=== PATIENT | female | born 1950 | race Caucasian/White ===

== ENCOUNTER 2019-01-24 02:14 | Inpatient (IN) | payer MEDICARE ==
[~2019-01-24] VITALS: Ht 167.6 cm; Wt 65.9 kg
[2019-01-24] MEDS ORDERED: ONDANSETRON 4 MG INJ IV STA ×2 (02:18→03:59)
[2019-01-24] MEDS ORDERED: morphine 4 MG/ML VIAL IV STA (02:18)
[2019-01-24 02:28] VITALS: Ht 167.6 cm; Wt 65.9 kg
--- NOTE | 2019-01-24 03:35 | ERD ---
ER Documentation Chief Complaint Chief Complaint MARTIN from [facility],back pain r/t post-op sx,[place] at 0100 HPI This is a 68-year-old female brought in from the elbow of her back pain. Patient states that she feels body aches everywhere, she had spinal surgery, for ankylosing spondylosis. She states that she did not feel that the facility was addressing her pain. She denies fever, denies chest pain. ROS All systems reviewed and are negative except as per history of present illness. Medications Home Meds Reported Medications Ibuprofen* (Advil*) 200 Mg Capsule, 200 MG PO Q6H PRN for PAIN, CAP 01/24/19 Allergies Allergies: Coded Allergies: No Known Allergy (Unverified , 01/24/19) PMhx/Soc History of Surgery: Yes (BREAST REDUCTION,BACK SURGERY ) Hx Alcohol Use: No Hx Substance Use: No Hx Tobacco Use: Yes Smoking Status: Current some day smoker Physical Exam Vitals Vital Signs Date Temp Pulse Resp B/P (MAP) Pulse Ox O2 O2 Flow FiO2 Time Delivery Rate 01/24/19 90 16 117/88 92 Nasal 3.0 04:12 (98) Cannula 01/24/19 98.3 86 18 157/106 99 02:28 (123) Physical Exam Const: Patient tearful, cooperative Head: Atraumatic Eyes: Normal Conjunctiva ENT: Normal External Ears, Nose and Mouth. Neck: Full range of motion. No meningismus. Resp: Clear to auscultation bilaterally Cardio: Regular rate and rhythm, no murmurs Abd: Soft, non tender, non distended. Normal bowel sounds Skin: No petechiae or rashes Back: There is diffuse lower back tenderness, there is no step-off. Ext: No cyanosis, or edema Neur: Awake and alert Psych: Normal Mood and Affect Result Diagram: 01/24/19 0244 01/24/19 0244 Results 24 hrs Laboratory Tests Test 01/24/19 02:43 01/24/19 02:44 Prothrombin Time 11.6 Sec Prothrombin Time Ratio 0.9 INR International Normalized Ratio 0.84 White Blood Count 3.3 10^3/ul Red Blood Count 4.27 10^6/ul Hemoglobin 11.7 g/dl Hematocrit 36.8 % Mean Corpuscular Volume 86.2 fl Mean Corpuscular Hemoglobin 27.4 pg Mean Corpuscular Hemoglobin Concent 31.8 g/dl Red Cell Distribution Width 15.7 % Platelet Count 261 10^3/UL Mean Platelet Volume 9.5 fl Immature Granulocytes % 0.300 % Neutrophils % 34.0 % Lymphocytes % 50.0 % Monocytes % 11.7 % Eosinophils % 2.8 % Basophils % 1.2 % Nucleated Red Blood Cells % 0.0 /100WBC Immature Granulocytes # 0.010 10^3/ul Neutrophils # 1.1 10^3/ul Lymphocytes # 1.6 10^3/ul Monocytes # 0.4 10^3/ul Eosinophils # 0.1 10^3/ul Basophils # 0.0 10^3/ul Nucleated Red Blood Cells # 0.0 10^3/ul Sodium Level 142 mmol/L Potassium Level 4.2 mmol/L Chloride Level 108 mmol/L Carbon Dioxide Level 27 mmol/L Anion Gap 7 Blood Urea Nitrogen 17 mg/dl Creatinine 0.82 mg/dl Est Glomerular Filtrat Rate mL/min > 60 mL/min Glucose Level 92 mg/dl Calcium Level 10.0 mg/dl Total Bilirubin 0.2 mg/dl Direct Bilirubin 0.00 mg/dl Indirect Bilirubin 0.2 mg/dl Aspartate Amino Transf (AST/SGOT) 42 IU/L Alanine Aminotransferase (ALT/SGPT) 70 IU/L Alkaline Phosphatase 142 IU/L Troponin I < 0.012 ng/ml Total Protein 7.1 g/dl Albumin 3.8 g/dl Globulin 3.30 g/dl Albumin/Globulin Ratio 1.15 Current Medications Medications Dose Sig/Maikol Start Time Status Last (Trade) Ordered Route PRN Stop Time Admin Dose Reason Admin Morphine 4 mg ONCE STAT 01/24/19 DC 01/24/19 Sulfate IV 02:18 02:47 (morphine) 01/24/19 02:20 Ondansetron 4 mg ONCE STAT 01/24/19 DC 01/24/19 HCl (Zofran IV 02:18 02:47 Inj) 01/24/19 02:20 Ondansetron 4 mg ONCE STAT 01/24/19 DC 01/24/19 HCl (Zofran IV 03:59 04:04 Inj) 01/24/19 04:00 Ketamine 20 mg ONCE STAT 01/24/19 DC 01/24/19 HCl IV 03:59 04:05 (Ketamine 01/24/19 04:00 HCl) Lorazepam 0.5 mg ONCE ONCE 01/24/19 DC 01/24/19 (Ativan) IV 05:00 04:35 01/24/19 05:01 Procedures/MDM 60-year-old female presents for acute on chronic back pain. I reviewed the patient's outside records. Per her last hospitalization, she was discharged from [facility] on January 15, she has documented history of prior alcoholism and substance abuse, during her hospitalization she had an MRI which showed postop changes at L4/L5 with hardware intact, given her pain, a CT of the lumbar spine was ordered. EKG: Rate/Rhythm: Normal Sinus Rhythm QRS, ST, T-waves: No changes consistent w/ acute ischemia Impression: No evidence of ischemia or arrhythmia 5:44 AM: Accepting Care Team: Current data and ongoing care discussed. Primary: Aj Consulting: None Outstanding Data: none Departure Diagnosis: Primary Impression: Back pain Back pain location: low back pain Chronicity: unspecified Back pain laterality: unspecified Sciatica presence: unspecified whether sciatica present Qualified Codes: M54.5 - Low back pain Condition: RACHEAL Cespedes MD Jan 24, 2019 03:35
[2019-01-24] MEDS ORDERED: KETAMINE HCL (50 MG/ML) 1ml syringe IV STA (03:59)
[2019-01-24] MEDS ORDERED: IBUP200C11 PO (04:23)
[2019-01-24] MEDS ORDERED: LORAZEPAM 2 MG INJ IV ONE (05:00)
[2019-01-24] MEDS ORDERED: ACETAMINOPHEN 325 MG TAB PO PRN ×2 (06:00)
[2019-01-24] MEDS ORDERED: ONDANSETRON 4 MG INJ IV PRN ×2 (06:00)
[2019-01-24] MEDS ORDERED: BISACODYL (EC) 5 MG TAB PO PRN (06:00)
[2019-01-24] MEDS: HYDROCODONE/APAP (5/325) TAB PO SCH ×4 (06:26→23:00)
[2019-01-24] MEDS: HYDROmorphONE 0.5 MG/0.5 ML SYG IV PRN ×4 (07:49→21:31)
[2019-01-24 08:16] VITALS: BP 132/71; PULSE 72; RESP 17
[2019-01-24] MEDS: ENOXAPARIN 40 MG/0.4 ML SYG SC SCH (09:08)
--- NOTE | 2019-01-24 11:22 | HP ---
Date/Time of Note Date/Time of Note DATE: 01/24/19 TIME: 11:22 Assessment/Plan VTE Prophylaxis Pharmacological prophylaxis: LMWH Lines/Catheters IV Catheter Type (from Nrs): Saline Lock Urinary Cath still in place: No Assessment/Plan Hospital Course 68-year-old female with a past medical history of chronic back pain who had a l umbar spine surgery in September 2018 and was getting rehabilitation [facility] a local [facility] facility who was brought into the emergency room because of uncontrolled pain, will be admitted to inpatient setting for further treatment and evaluation. 1. Low back pain in a patient with recent surgery to the lumbar spine. Lumbar spine CT showing postsurgical changes L4-5 with grade 2 anterolisthesis, severe disc space narrowing, endplate erosive changes, and probable fragmented disc spacer device. Obtain imaging studies from the recent hospitalization. If unable to obtain records from other hospital, would do MRI of the lumbar spine with and without contrast. The patient has no evidence of any neurovascular compromise. Continue pain control. PT evaluation. 2. Anxiety disorder. The patient will be maintained on PRN anxiolytics. Psychiatric evaluation will be obtained. 3. Suspect opioid dependency. Will judiciously use opioids. Will obtain pain management consult if needed. 4. Incomplete database. Will obtain medical records from her recent hospitalization at [facility] and [facility]. Plan: The patient will be admitted to inpatient medical surgical floor. The pat ient will be started on a regular diet. The patient will be started on DVT prophylaxis. The patient will remain a full code. Activities will be with assist. The rest of the patient's management will be based on the clinical course and the results of diagnostic studies. Based on the patient's clinical presentation, she most probably requires at least 2 midnights stay for further management and evaluation of her clinical presentation. The patient was seen in collaboration with Dr. Garces. Result Diagram: 01/24/19 0244 01/24/19 0244 Results 24hrs Laboratory Tests Test 01/24/19 02:43 01/24/19 02:44 Prothrombin Time 11.6 L Prothrombin Time Ratio 0.9 INR International Normalized Ratio 0.84 White Blood Count 3.3 L Red Blood Count 4.27 Hemoglobin 11.7 L Hematocrit 36.8 L Mean Corpuscular Volume 86.2 Mean Corpuscular Hemoglobin 27.4 L Mean Corpuscular Hemoglobin Concent 31.8 L Red Cell Distribution Width 15.7 H Platelet Count 261 Mean Platelet Volume 9.5 Immature Granulocytes % 0.300 Neutrophils % 34.0 L Lymphocytes % 50.0 Monocytes % 11.7 H Eosinophils % 2.8 Basophils % 1.2 Nucleated Red Blood Cells % 0.0 Immature Granulocytes # 0.010 Neutrophils # 1.1 L Lymphocytes # 1.6 Monocytes # 0.4 Eosinophils # 0.1 Basophils # 0.0 Nucleated Red Blood Cells # 0.0 Sodium Level 142 Potassium Level 4.2 Chloride Level 108 Carbon Dioxide Level 27 Anion Gap 7 Blood Urea Nitrogen 17 Creatinine 0.82 Est Glomerular Filtrat Rate mL/min > 60 Glucose Level 92 Calcium Level 10.0 Total Bilirubin 0.2 Direct Bilirubin 0.00 Indirect Bilirubin 0.2 Aspartate Amino Transf (AST/SGOT) 42 Alanine Aminotransferase (ALT/SGPT) 70 H Alkaline Phosphatase 142 H Troponin I < 0.012 Total Protein 7.1 Albumin 3.8 Globulin 3.30 H Albumin/Globulin Ratio 1.15 HPI/ROS Admit Date/Time Admit Date/Time Jan 24, 2019 at 05:59 Hx of Present Illness This is a 68-year-old female who was brought in from [facility] because of lower back pain. The patient verbalized that she was transferred to [facility] after her hospitalization at [facility] on January 15, 2019. She has been unhappy with the care at the facility and therefore, she called the paramedics. The patient verbalized that she had a surgery for ankylosing spondylitis at [facility] in September [address] David Francisco and she was discharged home 3 days after the surgery. Afterwards she was taken to [facility] from her home for reasons that she could not explain. The patient emphasized that she has no problems with drug abuse or alcoholism. The patient denied any psychiatric problems. Before the lumbar spine surgery, the patient was being followed by at [facility] for her chronic pain. The patient was unable to explain the reason for her recent hospitalization at [facility]. The patient verbalized that she has been transferred to [facility] without her knowledge. According tot the patient's RN who had a chance to talk to the patient's daughter (Marianna Abernathy), the patient is dependent on opioids and she had refused home PT after the surgery. As per the patient's daughter the patient becomes agitated when not given enough opioids. During the initial evaluation the patient was complaining of back pain with radiation to bilateral upper extremities and radiation to the chest. The patient also verbalized difficulty in ambulation. She denied any urinary or fecal incontinence. She denied any saddle anesthesia. She denied any fevers or chills. Denied any dyspnea. Denied any nausea, vomiting, abdominal pain, or diarrhea. In the emergency room, the patient underwent a chest x-ray that was showing mild bibasilar subsegmental atelectasis. The patient underwent a lumbar spine CT that was showing postsurgical changes L4-L5 with grade 2 anterolisthesis, severe disc space narrowing, endplate erosive changes, and a probable fragmented disc spacer device. The patient was treated with IV morphine, IV ketamine, anxiolytics, and antiemetics in the emergency room. ROS Constitutional: no complaints Eyes: no complaints ENT: no complaints Respiratory: no complaints Cardiovascular: no complaints Gastrointestinal: no complaints Genitourinary: no complaints Musculoskeletal: back pain Skin: no complaints Neurologic: no complaints Endocrine: no complaints Lymphatic: no complaints Psychological: anxiety Immunologic: no complaints PMH/Family/Social Past Medical History 1. Chronic back pain. Medications Current Medications Ondansetron HCl (Zofran Inj) 4 mg BRIDGE ORDER PRN IV NAUSEA/VOMITING; Start 01/24/19 at 06:00; Stop 01/25/19 at 05:59 Acetaminophen (Tylenol Tab) 650 mg ER BRIDGE PRN PO .MILD PAIN 1-3 OR TEMP; Start 01/24/19 at 06:00; Stop 01/25/19 at 05:59 IV Flush (NS 3 ml) 3 ml PER PROTOCOL IV ; Start 01/24/19 at 06:00 Ondansetron HCl (Zofran Inj) 4 mg Q6H PRN IV NAUSEA/VOMITING; Start 01/24/19 at 06:00 Acetaminophen (Tylenol Tab) 650 mg Q6H PRN PO .PAIN 1-3 OR TEMP; Start 01/24/19 at 06:00 Acetaminophen/ Hydrocodone Bitart ([place] (5/325)) 1 tab Q6H PO Last administered on 01/24/19at 06:26; Admin Dose 1 TAB; Start 01/24/19 at 06:00 Hydromorphone HCl (Dilaudid) 0.5 mg Q4H PRN IV .SEVERE PAIN 7-10 Last administered on 01/24/19at 07:49; Admin Dose 0.5 MG; Start 01/24/19 at 06:00 Docusate Sodium (Colace) 100 mg Q12H PRN PO .CONSTIPATION; Start 01/24/19 at 06:00 Bisacodyl (Dulcolax) 5 mg DAILY PRN PO .CONSTIPATION; Start 01/24/19 at 06:00 Enoxaparin Sodium (Lovenox) 40 mg DAILY SC Last administered on 01/24/19at 09:08; Admin Dose 40 MG; Start 01/24/19 at 09:00 Coded Allergies: No Known Allergy (Unverified , 01/24/19) Past Surgical History 1. B/L breast reduction surgery. 2. Recent lumbar spine surgery in September, w/ Dr. David Francisco At [facility]. Social History Patient verbalized that she used to be was a [employer] for 25 years and is currently . Prior to the patient's recent surgery, she was living in her home by herself close to her daughter's house. The patient verbalized that she has good financial reserves. Alcohol Use: other (Prior alcohol abuse disorder.) Smoking Status: Former smoker Drug Use: other (Remote history of drug use) Exam/Review of Systems Vital Signs Vitals Vital Signs Date Temp Pulse Resp B/P (MAP) Pulse Ox O2 O2 Flow FiO2 Time Delivery Rate 01/24/19 98.7 72 17 132/71 100 Room Air 08:16 (91) 01/24/19 3.0 06:30 Exam Exam General: Adequately build 68 year-old female lying in bed in no apparent distress. HEENT: Normocephalic, atraumatic. Eyes: Anicteric sclerae, conjunctivae clear. ENT: Nasal septum midline, oral mucosa moist. Neck supple, no JVD noticed. Respiratory: Bilaterally clear breath sounds. No use of accessory muscles of respiration. No adventitious breath sounds. Cardiovascular: S1, S2 heard. No murmurs or gallops. Abdomen: Soft, nontender, and nondistended. Bowel sounds positive in all 4 quadrants. Back: Healed surgical scar (midline) over the lumbar spine. Genitourinary: Deferred. Extremities: No cyanosis, no clubbing, no edema. Peripheral pulses palpable. Neurologic: Cranial nerves II through XII grossly intact. The patient is awake, alert, and oriented. Skin: Normal skin turgor. No skin rashes. Psychologic: Anxious. Tearful at times. Additional Comments CT Lumbar Spine IMPRESSION: No definite acute fracture. Postsurgical changes L4-5 with grade 2 anterolisthesis, severe disc space narrowing, endplate erosive changes, and a probable fragmented disc spacer device. Diskitis cannot be excluded with this appearance. Significant disc space narrowing is seen at this level with some probable posterior bony fusion material also seen. Edema and stranding of the subcutaneous soft tissues posteriorly. BRITTANY ALVAREZ NP Jan 24, 2019 11:22
[2019-01-24 13:00] VITALS: BP 181/71; PULSE 100; RESP 17
[2019-01-24 14:00] VITALS: BP 186/81; PULSE 100; RESP 17
[2019-01-24 14:28] VITALS: BP 131/75; PULSE 74; RESP 17
[2019-01-24] MEDS: LORAZEPAM 2 MG INJ IV PRN ×2 (15:19→23:52)
[2019-01-24] MEDS ORDERED: SOD CHLORIDE 0.9% 1,000 ML IV SCH (15:30)
[2019-01-24 20:00] VITALS: BP 101/62; PULSE 88; RESP 18
[2019-01-24 23:50] VITALS: BP 127/71; PULSE 84
[2019-01-25 01:00] VITALS: BP 115/74; PULSE 84; RESP 18
[2019-01-25] MEDS: HYDROmorphONE 0.5 MG/0.5 ML SYG IV PRN ×4 (04:30→19:57)
[2019-01-25] MEDS: HYDROCODONE/APAP (5/325) TAB PO SCH ×3 (06:40→18:08)
[2019-01-25 07:32] VITALS: BP 132/82; PULSE 83; RESP 17
[2019-01-25] MEDS: ENOXAPARIN 40 MG/0.4 ML SYG SC SCH (08:37)
[2019-01-25] MEDS: LORAZEPAM 2 MG INJ IV PRN (11:12)
--- NOTE | 2019-01-25 13:36 | PN ---
Date/Time of Note Date/Time of Note DATE: 01/25/19 TIME: 13:31 Assessment/Plan VTE Prophylaxis Risk score (from Nsg)>0 risk: 2 SCD applied (from Nsg): Yes Pharmacological prophylaxis: LMWH Lines/Catheters IV Catheter Type (from Nrsg): Peripheral IV Urinary Cath still in place: No Assessment/Plan Assessment/Plan 68-year-old woman with a past medical history of chronic back pain who had a lumbar spine surgery in September 2018 and was getting rehabilitation at a local [facility] facility who was brought into the emergency room because of uncontrolled pain. # Low back pain in a patient with recent surgery to the lumbar spine. - lumbar spine surgery by Dr. Loyola 10/23/2018 - Lumbar spine CT showing postsurgical changes L4-5 with grade 2 anterolisthesis, severe disc space narrowing, endplate erosive changes, and probable fragmented disc spacer device. - Patient has no symptoms concerning for cauda equina or other spinal compression. Will hold off on MRI. - Continue opioid analgesics and muscle relaxants. Wean off IV opioids onto oral. - PT # Anxiety disorder. - The patient will be maintained on PRN anxiolytics. - Psychiatric evaluation will be obtained. # Suspect opioid dependency. - Will judiciously use opioids. - Will obtain pain management consult if needed. # Incomplete database. Will obtain medical records from her recent hospitalization at [facility] and [facility], if patient consents. This may not be entirely necessary to treat her chronic lower back pain. Plan: Pain control, wean off IV analgesics, physical therapy, discharge with home health PT. Result Diagram: 01/25/19 0425 01/25/19 0425 Subjective 24 Hr Interval Summary Free Text/Dictation No acute overnight events. Mood and affect appropriate on my exam. Pain adequately controlled. She does keep asking if she can go home to water her plants and tidy up and return to the hospital. I said no. Exam/Review of Systems Exam Vitals Vital Signs Date Temp Pulse Resp B/P (MAP) Pulse Ox O2 O2 Flow FiO2 Time Delivery Rate 01/25/19 83 17 132/82 94 07:32 (99) 01/25/19 98.6 01:00 01/24/19 Room Air 20:00 01/24/19 3.0 06:30 Intake and Output 01/24/19 01/24/19 01/25/19 1515:00 23:00 07:00 IntakeIntake Total 600 ml 600 ml 800 ml BalanceBalance 600 ml 600 ml 800 ml Exam General: Adequately built woman lying in bed in no apparent distress. HEENT: Normocephalic, atraumatic. Eyes: Anicteric sclerae, conjunctivae clear. ENT: Nasal septum midline, oral mucosa moist. Neck supple, no JVD noticed. Respiratory: Bilaterally clear breath sounds. No use of accessory muscles of respiration. No adventitious breath sounds. Cardiovascular: S1, S2 heard. No murmurs or gallops. Abdomen: Soft, nontender, and nondistended. Bowel sounds positive in all 4 quadrants. Back: Healed surgical scar (midline) over the lumbar spine. No midline or paraspinal tenderness. Extremities: No cyanosis, no clubbing, no edema. Peripheral pulses palpable. Skin: Normal skin turgor. No skin rashes. Results Results 24hrs Laboratory Tests Test 01/25/19 02:45 01/25/19 04:25 Urine Opiates Screen Positive Urine Barbiturates Negative Urine Amphetamines Screen Negative Urine Benzodiazepines Screen Positive Urine Cocaine Screen Negative Urine Cannabinoids Negative White Blood Count 3.3 L Red Blood Count 3.65 L Hemoglobin 10.2 L Hematocrit 31.7 L Mean Corpuscular Volume 86.8 Mean Corpuscular Hemoglobin 27.9 L Mean Corpuscular Hemoglobin Concent 32.2 Red Cell Distribution Width 15.7 H Platelet Count 244 Mean Platelet Volume 9.8 Immature Granulocytes % 0.000 L Neutrophils % 40.2 Lymphocytes % 44.6 Monocytes % 11.9 H Eosinophils % 2.1 Basophils % 1.2 Nucleated Red Blood Cells % 0.0 Immature Granulocytes # 0.000 Neutrophils # 1.3 L Lymphocytes # 1.5 Monocytes # 0.4 Eosinophils # 0.1 Basophils # 0.0 Nucleated Red Blood Cells # 0.0 Sodium Level 142 Potassium Level 4.2 Chloride Level 107 Carbon Dioxide Level 28 Anion Gap 7 Blood Urea Nitrogen 15 Creatinine 0.82 Est Glomerular Filtrat Rate mL/min > 60 Glucose Level 92 Hemoglobin A1c 5.2 Calcium Level 9.7 Magnesium Level 1.8 Total Bilirubin 0.2 Direct Bilirubin 0.00 Indirect Bilirubin 0.2 Aspartate Amino Transf (AST/SGOT) 37 Alanine Aminotransferase (ALT/SGPT) 61 Alkaline Phosphatase 116 Total Protein 5.6 #L Albumin 3.1 L Globulin 2.50 Albumin/Globulin Ratio 1.24 Triglycerides Level 159 H Cholesterol Level 202 H LDL Cholesterol, Calculated 128 HDL Cholesterol 42 Cholesterol/HDL Ratio 4.8 Thyroid Stimulating Hormone (TSH) 3.660 Medications Medication Current Medications IV Flush (NS 3 ml) 3 ml PER PROTOCOL IV ; Start 01/24/19 at 06:00 Ondansetron HCl (Zofran Inj) 4 mg Q6H PRN IV NAUSEA/VOMITING; Start 01/24/19 at 06:00 Acetaminophen (Tylenol Tab) 650 mg Q6H PRN PO .PAIN 1-3 OR TEMP; Start 01/24/19 at 06:00 Acetaminophen/ Hydrocodone Bitart ([place] (5/325)) 1 tab Q6H PO Last administered on 01/25/19 11:12; Admin Dose 1 TAB; Start 01/24/19 at 06:00 Hydromorphone HCl (Dilaudid) 0.5 mg Q4H PRN IV .SEVERE PAIN 7-10 Last administered on 01/25/19 08:36; Admin Dose 0.5 MG; Start 01/24/19 at 06:00 Docusate Sodium (Colace) 100 mg Q12H PRN PO .CONSTIPATION; Start 01/24/19 at 06:00 Bisacodyl (Dulcolax) 5 mg DAILY PRN PO .CONSTIPATION; Start 01/24/19 at 06:00 Enoxaparin Sodium (Lovenox) 40 mg DAILY SC Last administered on 01/25/19 08:37; Admin Dose 40 MG; Start 01/24/19 at 09:00 Lorazepam (Ativan) 1 mg Q8H PRN IV Anxiety Last administered on 01/25/19 11:12; Admin Dose 1 MG; Start 01/24/19 at 12:00 BRIDGET COONEY MD Jan 25, 2019 13:36
[2019-01-25 14:00] VITALS: BP 113/80; PULSE 91; RESP 18
[2019-01-25 16:28] VITALS: BP 113/80; PULSE 91; RESP 18
[2019-01-25] MEDS ORDERED: BACLOFEN 10 MG TAB ONE (19:51)
[2019-01-25 20:00] VITALS: BP 101/63; PULSE 86; RESP 19
[2019-01-25] MEDS: BACLOFEN 10 MG TAB PO SCH (20:00)
[2019-01-26] MEDS: HYDROCODONE/APAP (5/325) TAB PO SCH ×3 (00:09→11:19)
[2019-01-26 02:02] VITALS: BP 111/66; PULSE 82; RESP 18
[2019-01-26 07:28] VITALS: BP 133/79; PULSE 80; RESP 17
[2019-01-26] MEDS: HYDROmorphONE 0.5 MG/0.5 ML SYG IV PRN ×4 (08:10→20:54)
[2019-01-26] MEDS: BACLOFEN 10 MG TAB PO SCH ×3 (08:10→20:53)
[2019-01-26] MEDS: ENOXAPARIN 40 MG/0.4 ML SYG SC SCH (08:11)
[2019-01-26 14:00] VITALS: BP 118/82; PULSE 94; RESP 17
--- NOTE | 2019-01-26 16:02 | PN ---
Date/Time of Note Date/Time of Note DATE: 01/26/19 TIME: 15:57 Assessment/Plan VTE Prophylaxis Risk score (from Nsg)>0 risk: 4 SCD applied (from Ns): No SCD contraindicated: other Pharmacological prophylaxis: LMWH Lines/Catheters IV Catheter Type (from Nrsg): Saline Lock Urinary Cath still in place: No Assessment/Plan Hospital Course S: Patient still having some back pain symptoms earlier today, relieved with pain medications. Was able to work in physical therapy after that, including ambulating in the hallway with their assistance. MRI L-spine performed as well results reviewed. O: VS - see below PE: General: Adequately built woman lying in bed, occasionally emotionally labile at times HEENT: Normocephalic, atraumatic. Eyes: Anicteric sclerae, conjunctivae clear. ENT: Nasal septum midline, oral mucosa moist. Neck supple, no JVD noticed. Respiratory: Bilaterally clear breath sounds. No use of accessory muscles of respiration. No adventitious breath sounds. Cardiovascular: S1, S2 heard. No murmurs or gallops. Abdomen: Soft, nontender, and nondistended. Bowel sounds positive in all 4 quadrants. Back: Healed surgical scar (midline) over the lumbar spine. No midline or paraspinal tenderness. Extremities: No cyanosis, no clubbing, no edema. Peripheral pulses palpable. MRI L-spine January 26, 2019: IMPRESSION: No evidence for epidural abscess. Again seen is significant grade 2 anterolisthesis of L4-5 with uncovering of the intervertebral disc and erosive endplate changes with some endplate enhancement. Diskitis cannot be excluded with this MRI appearance and comparison with previous studies would likely be most helpful. Postsurgical changes from prior L4-5 fusion are again seen. Disc spacer device is not well seen and if 1 was present, it is likely predominately resorbed. Other mild degenerative changes as above. Assessment/Plan: 68-year-old woman with a past medical history of chronic back pain who had a lumbar spine surgery in September 2018 and was getting rehabilitation at a local retirement facility who was brought into the emergency room because of uncontrolled pain. # Low back pain in a patient with recent surgery to the lumbar spine- lumbar spine surgery by Dr. Loyola 10/23/2018- Lumbar spine CT showing postsurgical changes L4-5 with grade 2 anterolisthesis, severe disc space narrowing, endplate erosive changes, and probable fragmented disc spacer device. MRI L-spine results reviewed as well. - Continue opioid analgesics and muscle relaxants. Wean off IV opioids onto oral. -Continue PT and will try to obtain medical records from [facility] where the patient was recently treated including the surgery she had performed a few months ago there, to review the records # Anxiety disorder.- The patient will be maintained on PRN anxiolytics. - Psychiatric evaluation will be obtained. # Suspect opioid dependency. - Will judiciously use opioids. - Will obtain pain management consult if needed. # Incomplete database. - Again, we are attempting to obtain medical records from her recent hospitalization at [facility] and [facility], if patient consents. Plan: Pain control, wean off IV analgesics, physical therapy, discharge with home health PT. Result Diagram: 01/25/195 01/25/19424 Exam/Review of Systems Exam Vitals Vital Signs Date Temp Pulse Resp B/P (MAP) Pulse Ox O2 O2 Flow FiO2 Time Delivery Rate 01/26/19 97.8 94 17 118/82 96 14:00 (94) 01/25/19 Room Air 14:00 01/24/19 3.0 06:30 Intake and Output 01/25/19 01/25/19 01/26/19 1414:59 22:59 06:59 IntakeIntake Total 480 ml BalanceBalance 480 ml Medications Medication Current Medications IV Flush (NS 3 ml) 3 ml PER PROTOCOL IV ; Start 01/24/19 at 06:00 Ondansetron HCl (Zofran Inj) 4 mg Q6H PRN IV NAUSEA/VOMITING; Start 01/24/19 at 06:00 Acetaminophen (Tylenol Tab) 650 mg Q6H PRN PO .PAIN 1-3 OR TEMP; Start 01/24/19 at 06:00 Hydromorphone HCl (Dilaudid) 0.5 mg Q4H PRN IV .SEVERE PAIN 7-10 Last administered on 01/26/19at 12:34; Admin Dose 0.5 MG; Start 01/24/19 at 06:00 Docusate Sodium (Colace) 100 mg Q12H PRN PO .CONSTIPATION; Start 01/24/19 at 06:00 Bisacodyl (Dulcolax) 5 mg DAILY PRN PO .CONSTIPATION; Start 01/24/19 at 06:00 Enoxaparin Sodium (Lovenox) 40 mg DAILY SC Last administered on 01/26/19at 08:11; Admin Dose 40 MG; Start 01/24/19 at 09:00 Baclofen (Lioresal) 10 mg TID PO Last administered on 01/26/19at 12:34; Admin Dose 10 MG; Start 01/25/19 at 21:00 Acetaminophen/ Hydrocodone Bitart ([place] (5/325)) 1 tab Q6H PRN PO PAIN LEVEL 4-7; Start 01/26/19 at 18:00 Lorazepam (Ativan) 0.5 mg Q12H PRN IV Anxiety; Start 01/27/19 at 00:00 JOSEP CAMPOS Jan 26, 2019 16:02
[2019-01-26] MEDS: HYDROCODONE/APAP (5/325) TAB PO PRN (17:49)
[2019-01-26 19:35] VITALS: BP 118/68; PULSE 95; RESP 18
[2019-01-26] MEDS: NACL 0.9% 3 ML SYG IV SCH (20:54)
[2019-01-27] MEDS ORDERED: LORAZEPAM 2 MG INJ IV PRN
[2019-01-27 02:00] VITALS: BP 122/70; PULSE 89; RESP 19
[2019-01-27] MEDS: HYDROmorphONE 0.5 MG/0.5 ML SYG IV PRN ×4 (07:04→21:38)
[2019-01-27 07:23] VITALS: BP 121/78; PULSE 68; RESP 16
[2019-01-27] MEDS: BACLOFEN 10 MG TAB PO SCH ×3 (09:04→21:37)
[2019-01-27] MEDS: HYDROCODONE/APAP (5/325) TAB PO PRN (09:04)
[2019-01-27] MEDS: ENOXAPARIN 40 MG/0.4 ML SYG SC SCH (09:05)
--- NOTE | 2019-01-27 12:27 | PN ---
Date/Time of Note Date/Time of Note DATE: 01/27/19 TIME: 12:20 Assessment/Plan VTE Prophylaxis Risk score (from Nsg)>0 risk: 2 SCD applied (from Ns): No SCD contraindicated: other Pharmacological prophylaxis: LMWH Lines/Catheters IV Catheter Type (from Nrsg): Peripheral IV Urinary Cath still in place: No Assessment/Plan Hospital Course S: Patient still getting pain meds, but helping to relieve her back pain. Have received some of the medical records from outside hospitals but still waiting for others. O: VS - see below PE: General: Adequately built woman lying in bed, occasionally emotionally labile at times HEENT: Normocephalic, atraumatic. Eyes: Anicteric sclerae, conjunctivae clear. ENT: Nasal septum midline, oral mucosa moist. Neck supple, no JVD noticed. Respiratory: Bilaterally clear breath sounds. No use of accessory muscles of respiration. No adventitious breath sounds. Cardiovascular: S1, S2 heard. No murmurs or gallops. Abdomen: Soft, nontender, and nondistended. Bowel sounds positive in all 4 quadrants. Back: Healed surgical scar (midline) over the lumbar spine. No midline or paraspinal tenderness. Extremities: No cyanosis, no clubbing, no edema. Peripheral pulses palpable. MRI L-spine January 26, 2019: IMPRESSION: No evidence for epidural abscess. Again seen is significant grade 2 anter olisthesis of L4-5 with uncovering of the intervertebral disc and erosive endplate changes with some endplate enhancement. Diskitis cannot be excluded with this MRI appearance and comparison with previous studies would likely be most helpful. Postsurgical changes from prior L4-5 fusion are again seen. Disc spacer device is not well seen and if 1 was present, it is likely predominately resorbed. Other mild degenerative changes as above. Assessment/Plan: 68-year-old woman with a past medical history of chronic back pain who had a lumbar spine surgery in September 2018 and was getting rehabilitation at a local detention facility who was brought into the emergency room b ecause of uncontrolled pain. # Low back pain in a patient with recent surgery to the lumbar spine- lumbar spine surgery by Dr. Loyola 10/23/2018- Lumbar spine CT showing postsurgical changes L4-5 with grade 2 anterolisthesis, severe disc space narrowing, endplate erosive changes, and probable fragmented disc spacer device. MRI L-spine results reviewed as well. -Continue opioid analgesics and muscle relaxants. Also trying wean off IV opioids onto oral. -Continue PT and will try to obtain medical records from [place] and [facility] where the patient was recently treated including the surgery she had performed a few months ago there, to review the records # Anxiety disorder.- The patient will be maintained on PRN anxiolytics. - Psychiatric evaluation is pending today, follow-up results of this # Suspect opioid dependency. - Will judiciously use opioids. - We will go ahead and obtain pain management consult as well # Incomplete database. - Again, we are attempting to obtain medical records from her recent hospitalization at [facility] (have reviewed the ones from [place]) Plan: Pain control, wean off IV analgesics, physical therapy, discharge with [facility] PT. Result Diagram: 01/27/19 0439 01/27/19 0439 Results 24hrs Laboratory Tests Test 01/27/19 04:39 White Blood Count 3.8 L Red Blood Count 3.89 L Hemoglobin 10.9 L Hematocrit 33.1 L Mean Corpuscular Volume 85.1 Mean Corpuscular Hemoglobin 28.0 L Mean Corpuscular Hemoglobin Concent 32.9 Red Cell Distribution Width 15.7 H Platelet Count 283 Mean Platelet Volume 9.4 Immature Granulocytes % 0.300 Neutrophils % 46.5 Lymphocytes % 38.0 Monocytes % 11.7 H Eosinophils % 2.7 Basophils % 0.8 Nucleated Red Blood Cells % 0.0 Immature Granulocytes # 0.010 Neutrophils # 1.8 Lymphocytes # 1.4 Monocytes # 0.4 Eosinophils # 0.1 Basophils # 0.0 Nucleated Red Blood Cells # 0.0 Sodium Level 142 Potassium Level 3.8 Chloride Level 109 Carbon Dioxide Level 26 Anion Gap 7 Blood Urea Nitrogen 15 Creatinine 0.79 Est Glomerular Filtrat Rate mL/min > 60 Glucose Level 99 Calcium Level 10.1 Phosphorus Level 4.6 Magnesium Level 1.8 Exam/Review of Systems Exam Vitals Vital Signs Date Temp Pulse Resp B/P (MAP) Pulse Ox O2 O2 Flow FiO2 Time Delivery Rate 01/27/19 98.4 68 16 121/78 97 Room Air 07:23 (92) 01/24/19 3.0 06:30 Intake and Output 01/26/19 01/26/19 01/27/19 1515:00 23:00 07:00 IntakeIntake Total 480 ml 240 ml BalanceBalance 480 ml 240 ml Results Results 24hrs Laboratory Tests Test 01/27/19 04:39 White Blood Count 3.8 L Red Blood Count 3.89 L Hemoglobin 10.9 L Hematocrit 33.1 L Mean Corpuscular Volume 85.1 Mean Corpuscular Hemoglobin 28.0 L Mean Corpuscular Hemoglobin Concent 32.9 Red Cell Distribution Width 15.7 H Platelet Count 283 Mean Platelet Volume 9.4 Immature Granulocytes % 0.300 Neutrophils % 46.5 Lymphocytes % 38.0 Monocytes % 11.7 H Eosinophils % 2.7 Basophils % 0.8 Nucleated Red Blood Cells % 0.0 Immature Granulocytes # 0.010 Neutrophils # 1.8 Lymphocytes # 1.4 Monocytes # 0.4 Eosinophils # 0.1 Basophils # 0.0 Nucleated Red Blood Cells # 0.0 Sodium Level 142 Potassium Level 3.8 Chloride Level 109 Carbon Dioxide Level 26 Anion Gap 7 Blood Urea Nitrogen 15 Creatinine 0.79 Est Glomerular Filtrat Rate mL/min > 60 Glucose Level 99 Calcium Level 10.1 Phosphorus Level 4.6 Magnesium Level 1.8 Medications Medication Current Medications IV Flush (NS 3 ml) 3 ml PER PROTOCOL IV Last administered on 01/26/19at 20:54; Admin Dose 3 ML; Start 01/24/19 at 06:00 Ondansetron HCl (Zofran Inj) 4 mg Q6H PRN IV NAUSEA/VOMITING; Start 01/24/19 at 06:00 Acetaminophen (Tylenol Tab) 650 mg Q6H PRN PO .PAIN 1-3 OR TEMP; Start 01/24/19 at 06:00 Hydromorphone HCl (Dilaudid) 0.5 mg Q4H PRN IV .SEVERE PAIN 7-10 Last administered on 01/27/19at 11:09; Admin Dose 0.5 MG; Start 01/24/19 at 06:00 Docusate Sodium (Colace) 100 mg Q12H PRN PO .CONSTIPATION; Start 01/24/19 at 06:00 Bisacodyl (Dulcolax) 5 mg DAILY PRN PO .CONSTIPATION; Start 01/24/19 at 06:00 Enoxaparin Sodium (Lovenox) 40 mg DAILY SC Last administered on 01/27/19at 09:05; Admin Dose 40 MG; Start 01/24/19 at 09:00 Baclofen (Lioresal) 10 mg TID PO Last administered on 01/27/19at 09:04; Admin Dose 10 MG; Start 01/25/19 at 21:00 Acetaminophen/ Hydrocodone Bitart ([place] (5/325)) 1 tab Q6H PRN PO PAIN LEVEL 4-7 Last administered on 01/27/19at 09:04; Admin Dose 1 TAB; Start 01/26/19 at 18:00 Lorazepam (Ativan) 0.5 mg Q12H PRN IV Anxiety; Start 01/27/19 at 00:00 JOSEP CAMPOS Jan 27, 2019 12:27
[2019-01-27 14:01] VITALS: BP 147/87; PULSE 88; RESP 15
--- NOTE | 2019-01-27 16:29 | PSY ---
Date/Time of Note Date/Time of Note DATE: 01/27/19 TIME: 16:25 Psychiatric Subjective Eval Consent Pt consented to telemedicine: No Subjective Evaluation Patient location: inpatient Chief Complaint: STEPHYRA from [facility],back pain r/t post-op sx,[place] at 0100 History of present illness Patient is a 68-year-old female with a past medical history of chronic back pain. On a [id number] evaluation patient is tearful complained of severe pain and anxiety patient also reports feeling hopeless and helpless she denies suicidal ideation and contracted for safety. Discussed risk and benefits of antidepressants Cymbalta, and antianxiety BuSpar and Klonopin and she verbalized understanding. Past psychiatric history Reports long history of depression and anxiety Hospitalization: other Medical history Problems Medical Problems: (1) Back pain Status: Acute Allergies: Coded Allergies: No Known Allergy (Unverified , 01/24/19) Substance Abuse Substance abuse history: No Prior substance abuse treatmen: No Social History Marital status: DPA/Conservatorship: No Psychiatric Objective Eval Review of Systems: Review of Systems: Not Applicable Physical Examination: Physical Examination: Not Applicable Appetite: Decreased Energy: Decreased Interest: Decreased Mental Status Examination: Appearance: Groomed Eye Contact: Fair Psychomotor Activity: Slow Behavior: Cooperative Speech: Soft AFFECT: Flat Mood: Depressed Though Process: Linear Thought Content: Normal Orientation: x4 Cognition: Alert Insight: Intact Judgement: Intact Attention Span: Distractible Laboratory Results Laboratory Tests Test 01/27/19 04:39 White Blood Count 3.8 10^3/ul Red Blood Count 3.89 10^6/ul Hemoglobin 10.9 g/dl Hematocrit 33.1 % Mean Corpuscular Volume 85.1 fl Mean Corpuscular Hemoglobin 28.0 pg Mean Corpuscular Hemoglobin Concent 32.9 g/dl Red Cell Distribution Width 15.7 % Platelet Count 283 10^3/UL Mean Platelet Volume 9.4 fl Immature Granulocytes % 0.300 % Neutrophils % 46.5 % Lymphocytes % 38.0 % Monocytes % 11.7 % Eosinophils % 2.7 % Basophils % 0.8 % Nucleated Red Blood Cells % 0.0 /100WBC Immature Granulocytes # 0.010 10^3/ul Neutrophils # 1.8 10^3/ul Lymphocytes # 1.4 10^3/ul Monocytes # 0.4 10^3/ul Eosinophils # 0.1 10^3/ul Basophils # 0.0 10^3/ul Nucleated Red Blood Cells # 0.0 10^3/ul Sodium Level 142 mmol/L Potassium Level 3.8 mmol/L Chloride Level 109 mmol/L Carbon Dioxide Level 26 mmol/L Anion Gap 7 Blood Urea Nitrogen 15 mg/dl Creatinine 0.79 mg/dl Est Glomerular Filtrat Rate mL/min > 60 mL/min Glucose Level 99 mg/dl Calcium Level 10.1 mg/dl Phosphorus Level 4.6 mg/dl Magnesium Level 1.8 mg/dl Assessment and Plan Assessment/Diagnosis Diagnosis Major depressive disorder severe recurrent without psychosis Recommendation/Plan Medication Management Cymbalta 30 mg twice a day, BuSpar 5 mg twice a day, and Klonopin 0.5 mg every 6 hours as needed for anxiety Multiple antipsychotics: No Psychotherapy Provide supportive therapy Discharge Disposition: Other Legal Status: Voluntary (Not meet criteria for 5150 hold) BEATA SALEEM NP Jan 27, 2019 16:29
[2019-01-27 19:46] VITALS: BP 134/97; PULSE 95; RESP 18
[2019-01-27] MEDS: BUSPIRONE 5 MG TAB NGT SCH (21:37)
[2019-01-27] MEDS: DULOXETINE 30 MG CAP DR PO SCH (21:37)
[2019-01-28] MEDS: HYDROmorphONE 0.5 MG/0.5 ML SYG IV PRN ×4 (01:42→20:44)
[2019-01-28 01:43] VITALS: BP 115/73; PULSE 88; RESP 18
[2019-01-28 08:01] VITALS: BP 125/78; PULSE 71; RESP 16
[2019-01-28] MEDS: BACLOFEN 10 MG TAB PO SCH ×3 (08:07→20:15)
[2019-01-28] MEDS: BUSPIRONE 5 MG TAB NGT SCH ×2 (08:07→20:15)
[2019-01-28] MEDS: DULOXETINE 30 MG CAP DR PO SCH ×2 (08:07→20:15)
[2019-01-28] MEDS: ENOXAPARIN 40 MG/0.4 ML SYG SC SCH (08:10)
[2019-01-28 14:00] VITALS: BP 175/81; PULSE 86; RESP 16
--- NOTE | 2019-01-28 15:27 | PN ---
Date/Time of Note Date/Time of Note DATE: 01/28/19 TIME: 15:17 Assessment/Plan VTE Prophylaxis Risk score (from Nsg)>0 risk: 2 SCD applied (from Nsg): No SCD contraindicated: other Pharmacological prophylaxis: LMWH Lines/Catheters IV Catheter Type (from Nrsg): Saline Lock Urinary Cath still in place: No Assessment/Plan Hospital Course S: Patient is seen by psychiatry team yesterday, started on anti-anxiety and depressive medicines which she is taking. Waiting to be seen by pain management team. Still waiting for medical records from [facility]. O: VS - see below PE: General: Adequately built woman lying in bed, talking on the phone. HEENT: Normocephalic, atraumatic. Eyes: Anicteric sclerae, conjunctivae clear. ENT: Nasal septum midline, oral mucosa moist. Neck supple, no JVD noticed. Respiratory: Bilaterally clear breath sounds. No use of accessory muscles of respiration. No adventitious breath sounds. Cardiovascular: S1, S2 heard. No murmurs or gallops. Abdomen: Soft, nontender, and nondistended. Bowel sounds positive in all 4 quadrants. Back: Healed surgical scar (midline) over the lumbar spine. No midline or paraspinal tenderness. Extremities: No cyanosis, no clubbing, no edema. Peripheral pulses palpable. MRI L-spine January 26, 2019: IMPRESSION: No evidence for epidural abscess. Again seen is significant grade 2 anterolisthesis of L4-5 with uncovering of the intervertebral disc and erosive endplate changes with some endplate enhancement. Diskitis cannot be excluded with this MRI appearance and comparison with previous studies would likely be most helpful. Postsurgical changes from prior L4-5 fusion are again seen. Disc spacer device is not well seen and if 1 was present, it is likely predominately resorbed. Other mild degenerative changes as above. Assessment/Plan: 68-year-old woman with a past medical history of chronic back pain who had a lumbar spine surgery in September 2018 and was getting rehabilitation at a local long-term facility who was brought into the emergency room because of uncontrolled pain. # Low back pain in a patient with recent surgery to the lumbar spine- lumbar spine surgery by Dr. Loyola 10/23/2018- Lumbar spine CT showing postsurgical changes L4-5 with grade 2 anterolisthesis, severe disc space narrowing, endplate erosive changes, and probable fragmented disc spacer device. MRI L-spine results reviewed as well. - Continue opioid analgesics and muscle relaxants. Also trying wean off IV opioids onto oral-again awaiting pain management consult - Continue PT and still waiting for medical records from [facility] where the patient was recently treated including the surgery she had performed a few months ago there, to review the records # Major depressive disorder severe recurrent without psychosis -appreciate psychiatry consult, this is her new diagnosis after patient had been complaining of anxiousness and being emotional labile -Continue BuSpar, Klonopin, Cymbalta, follow-up further psychiatry recommendations. # Suspect opioid dependency. - Will judiciously use opioids, again awaiting further recognitions from pain management consult as well Result Diagram: 01/27/19 0439 01/27/199 Exam/Review of Systems Exam Vitals Vital Signs Date Temp Pulse Resp B/P (MAP) Pulse Ox O2 O2 Flow FiO2 Time Delivery Rate 01/28/19 97.5 71 16 125/78 93 Room Air 08:01 (94) Intake and Output 01/27/19 01/27/19 01/28/19 1414:59 22:59 06:59 IntakeIntake Total 540 ml BalanceBalance 540 ml Medications Medication Current Medications IV Flush (NS 3 ml) 3 ml PER PROTOCOL IV Last administered on 01/26/19at 20:54; Admin Dose 3 ML; Start 01/24/19 at 06:00 Ondansetron HCl (Zofran Inj) 4 mg Q6H PRN IV NAUSEA/VOMITING Last administered on 01/28/19at 01:49; Admin Dose 4 MG; Start 01/24/19 at 06:00 Acetaminophen (Tylenol Tab) 650 mg Q6H PRN PO .PAIN 1-3 OR TEMP; Start 01/24/19 at 06:00 Hydromorphone HCl (Dilaudid) 0.5 mg Q4H PRN IV .SEVERE PAIN 7-10 Last administered on 01/28/19at 15:00; Admin Dose 0.5 MG; Start 01/24/19 at 06:00 Docusate Sodium (Colace) 100 mg Q12H PRN PO .CONSTIPATION; Start 01/24/19 at 06:00 Bisacodyl (Dulcolax) 5 mg DAILY PRN PO .CONSTIPATION; Start 01/24/19 at 06:00 Enoxaparin Sodium (Lovenox) 40 mg DAILY SC Last administered on 01/28/19 08:10; Admin Dose 40 MG; Start 01/24/19 at 09:00 Baclofen (Lioresal) 10 mg TID PO Last administered on 01/28/19 12:22; Admin Dose 10 MG; Start 01/25/19 at 21:00 Acetaminophen/ Hydrocodone Bitart ([place] (5/325)) 1 tab Q6H PRN PO PAIN LEVEL 4-7 Last administered on 01/27/19 09:04; Admin Dose 1 TAB; Start 01/26/19 at 18:00 Clonazepam (Klonopin) 0.5 mg Q6 PRN PO anxiety; Start 01/27/19 at 16:30 Buspirone HCl (Buspar) 5 mg BID NGT Last administered on 01/28/19 08:07; Admin Dose 5 MG; Start 01/27/19 at 21:00 Duloxetine HCl (Cymbalta) 30 mg BID PO Last administered on 01/28/19 08:07; Admin Dose 30 MG; Start 01/27/19 at 21:00 JOSEP CAMPOS Jan 28, 2019 15:27
[2019-01-28 19:32] VITALS: BP 123/73; PULSE 78; RESP 16
[2019-01-29 02:15] VITALS: BP 124/75; PULSE 87; RESP 16
[2019-01-29] MEDS: HYDROmorphONE 0.5 MG/0.5 ML SYG IV PRN ×3 (07:46→20:52)
[2019-01-29 08:04] VITALS: BP 122/85; PULSE 80; RESP 18
[2019-01-29] MEDS: BUSPIRONE 5 MG TAB NGT SCH ×2 (08:24→20:52)
[2019-01-29] MEDS: ENOXAPARIN 40 MG/0.4 ML SYG SC SCH (08:24)
[2019-01-29] MEDS: DULOXETINE 30 MG CAP DR PO SCH ×2 (08:24→20:52)
[2019-01-29] MEDS: BACLOFEN 10 MG TAB PO SCH ×3 (08:25→20:52)
[2019-01-29] MEDS: NACL 0.9% 3 ML SYG IV SCH (08:25)
[2019-01-29] MEDS: HYDROCODONE/APAP (5/325) TAB PO PRN ×2 (08:25→17:48)
--- NOTE | 2019-01-29 08:39 | CONS ---
Assessment/Plan Assessment/Plan Assessment/Plan (Daily) Failed back syndrome Incomplete databases By history patient is opioid demetra MRI reading below MPRESSION: No evidence for epidural abscess. Again seen is significant grade 2 anterolisthesis of L4-5 with uncovering of the intervertebral disc and erosive endplate changes with some endplate enhancement. Diskitis cannot be excluded with this MRI appearance and comparison with previous studies would likely be most helpful. Postsurgical changes from prior L4-5 fusion are again seen. Disc spacer device is not well seen and if 1 was present, it is likely predominately resorbed. Other mild degenerative changes as above. RPTAT: HLBE Suggest neurosurgery consult possible diskitis bone scan CRP Consultation Date/Type/Reason Admit Date/Time Jan 24, 2019 at 05:59 Date/Time of Note DATE: 01/29/19 TIME: 08:29 Hx of Present Illness This patient is a 68-year-old female status post lumbar sacral spine decompression surgery at [facility] September of this year. The details about the surgery are pending at this time medical records have been requested. Apparently postoperatively patient is doing well for a short period of time but then developed low back pain once again was seen by her surgeon was told that she had done some activity which caused damage or destruction of the hardware that was placed intraoperative. Patient denies any warning signs and denies pain radiating down to bilateral lower extremities which she did have prior to surgery. Denies any incontinence paresthesias numbness recent infect ious process for accelerated pain and bilateral lower extremities which was part of her complaint preoperatively. Prior to surgery and postop patient denies any trauma states her medical problems have been chronicled for a long period of time so much so she was unable to tolerate pain any longer. Patient adamantly denies taking high doses of opioids at home or muscle relaxants. She does not want to go back and see her primary care surgeon because she states that he blamed her for whatever changes in placement of the hardware occurred. Patient is currently not requesting accelerated doses of opioids. Past Medical History Medical History: no pertinent history Home Meds Reported Medications Ibuprofen* (Advil*) 200 Mg Capsule, 200 MG PO Q6H PRN for PAIN, CAP 01/24/19 Medications Current Medications IV Flush (NS 3 ml) 3 ml PER PROTOCOL IV Last administered on 01/26/19at 20:54; Admin Dose 3 ML; Start 01/24/19 at 06:00 Ondansetron HCl (Zofran Inj) 4 mg Q6H PRN IV NAUSEA/VOMITING Last administered on 01/28/19at 01:49; Admin Dose 4 MG; Start 01/24/19 at 06:00 Acetaminophen (Tylenol Tab) 650 mg Q6H PRN PO .PAIN 1-3 OR TEMP; Start 01/24/19 at 06:00 Hydromorphone HCl (Dilaudid) 0.5 mg Q4H PRN IV .SEVERE PAIN 7-10 Last administered on 01/29/19at 07:46; Admin Dose 0.5 MG; Start 01/24/19 at 06:00 Docusate Sodium (Colace) 100 mg Q12H PRN PO .CONSTIPATION; Start 01/24/19 at 06:00 Bisacodyl (Dulcolax) 5 mg DAILY PRN PO .CONSTIPATION; Start 01/24/19 at 06:00 Enoxaparin Sodium (Lovenox) 40 mg DAILY SC Last administered on 01/28/19at 08:10; Admin Dose 40 MG; Start 01/24/19 at 09:00 Baclofen (Lioresal) 10 mg TID PO Last administered on 01/28/19at 20:15; Admin Dose 10 MG; Start 01/25/19 at 21:00 Acetaminophen/ Hydrocodone Bitart ([place] (5/325)) 1 tab Q6H PRN PO PAIN LEVEL 4-7 Last administered on 01/27/19at 09:04; Admin Dose 1 TAB; Start 01/26/19 at 18:00 Clonazepam (Klonopin) 0.5 mg Q6 PRN PO anxiety; Start 01/27/19 at 16:30 Buspirone HCl (Buspar) 5 mg BID NGT Last administered on 01/28/19at 20:15; Admin Dose 5 MG; Start 01/27/19 at 21:00 Duloxetine HCl (Cymbalta) 30 mg BID PO Last administered on 01/28/19at 20:15; Admin Dose 30 MG; Start 01/27/19 at 21:00 Allergies: Coded Allergies: No Known Allergy (Unverified , 01/24/19) Past Surgical History Past Surgical Hx: other (HPI) Social History Alcohol Use: other (Prior alcohol abuse disorder.) Smoking Status: Former smoker Drug Use: other (Remote history of drug use) Exam/Review of Systems Exam Vitals Vital Signs Date Temp Pulse Resp B/P (MAP) Pulse Ox O2 O2 Flow FiO2 Time Delivery Rate 01/29/19 98.1 80 18 122/85 97 Room Air 08:04 (97) Intake and Output 01/28/19 01/28/19 01/29/19 1515:00 23:00 07:00 IntakeIntake Total 500 ml BalanceBalance 500 ml Constitutional: alert, oriented, well developed Psych: anxiety Neurological: other (Range of motion bilateral lower extremities completely intact, flexion extension internal external rotation ankles and hips intact, motor five over five, sensory intact, negative bilateral straight leg signs, intact extensor hallisus tendon intact, negative clonus) Results Result Diagram: 01/27/19 0439 01/27/19 0439 Results 24hrs Laboratory Tests Test 01/28/19 18:58 C-Reactive Protein 0.7 Medications Medication Current Medications IV Flush (NS 3 ml) 3 ml PER PROTOCOL IV Last administered on 01/26/19at 20:54; Admin Dose 3 ML; Start 01/24/19 at 06:00 Ondansetron HCl (Zofran Inj) 4 mg Q6H PRN IV NAUSEA/VOMITING Last administered on 01/28/19at 01:49; Admin Dose 4 MG; Start 01/24/19 at 06:00 Acetaminophen (Tylenol Tab) 650 mg Q6H PRN PO .PAIN 1-3 OR TEMP; Start 01/24/19 at 06:00 Hydromorphone HCl (Dilaudid) 0.5 mg Q4H PRN IV .SEVERE PAIN 7-10 Last administered on 01/29/19at 07:46; Admin Dose 0.5 MG; Start 01/24/19 at 06:00 Docusate Sodium (Colace) 100 mg Q12H PRN PO .CONSTIPATION; Start 01/24/19 at 06:00 Bisacodyl (Dulcolax) 5 mg DAILY PRN PO .CONSTIPATION; Start 01/24/19 at 06:00 Enoxaparin Sodium (Lovenox) 40 mg DAILY SC Last administered on 01/28/19at 08:10; Admin Dose 40 MG; Start 01/24/19 at 09:00 Baclofen (Lioresal) 10 mg TID PO Last administered on 01/28/19 20:15; Admin Dose 10 MG; Start 01/25/19 at 21:00 Acetaminophen/ Hydrocodone Bitart ([place] (5/325)) 1 tab Q6H PRN PO PAIN LEVEL 4-7 Last administered on 01/27/19 09:04; Admin Dose 1 TAB; Start 01/26/19 at 18:00 Clonazepam (Klonopin) 0.5 mg Q6 PRN PO anxiety; Start 01/27/19 at 16:30 Buspirone HCl (Buspar) 5 mg BID NGT Last administered on 01/28/19 20:15; Admin Dose 5 MG; Start 01/27/19 at 21:00 Duloxetine HCl (Cymbalta) 30 mg BID PO Last administered on 01/28/19 20:15; Admin Dose 30 MG; Start 01/27/19 at 21:00 MILES MONSALVE Jan 29, 2019 08:39
[2019-01-29] MEDS: clonAZEPAM 0.5 MG TAB PO PRN (09:40)
[2019-01-29 14:00] VITALS: BP 107/57; PULSE 77; RESP 18
--- NOTE | 2019-01-29 14:44 | PN ---
Date/Time of Note Date/Time of Note DATE: 01/29/19 TIME: 14:41 Assessment/Plan VTE Prophylaxis Risk score (from Nsg)>0 risk: 2 SCD applied (from Nsg): No SCD contraindicated: other Pharmacological prophylaxis: LMWH Lines/Catheters IV Catheter Type (from Nrsg): Saline Lock Urinary Cath still in place: No Assessment/Plan Hospital Course S: Patient still having occasional pain symptoms, and x-rays performed as ordered by neurosurgery team. Seen by pain management team yesterday as well. O: VS - see below PE: General: Adequately built woman lying in bed, talking on the phone. HEENT: Normocephalic, atraumatic. Eyes: Anicteric sclerae, conjunctivae clear. ENT: Nasal septum midline, oral mucosa moist. Neck supple, no JVD noticed. Respiratory: Bilaterally clear breath sounds. No use of accessory muscles of respiration. No adventitious breath sounds. Cardiovascular: S1, S2 heard. No murmurs or gallops. Abdomen: Soft, nontender, and nondistended. Bowel sounds positive in all 4 quadrants. Back: Healed surgical scar (midline) over the lumbar spine. No midline or paraspinal tenderness. Extremities: No cyanosis, no clubbing, no edema. Peripheral pulses palpable. MRI L-spine January 26, 2019: IMPRESSION: No evidence for epidural abscess. Again seen is significant grade 2 anterolisthesis of L4-5 with uncovering of the intervertebral disc and erosive endplate changes with some endplate enhancement. Diskitis cannot be excluded with this MRI appearance and comparison with previous studies would likely be most helpful. Postsurgical changes from prior L4-5 fusion are again seen. Disc spacer device is not well seen and if 1 was present, it is likely predominately resorbed. Other mild degenerative changes as above. Assessment/Plan: 68-year-old woman with a past medical history of chronic back pain who had a lumbar spine surgery in September 2018 and was getting rehabilitation at a local [facility] facility who was brought into the emergency room because of uncontrolled pain. # Low back pain in a patient with recent surgery to the lumbar spine- lumbar spine surgery by Dr. Loyola 10/23/2018- Lumbar spine CT showing postsurgical changes L4-5 with grade 2 anterolisthesis, severe disc space narrowing, endplate erosive changes, and probable fragmented disc spacer device. MRI L-spine results reviewed as well. - Continue opioid analgesics and muscle relaxants. Also trying wean off IV opioids onto [id number] further recommendations from pain management consult - Continue PT and again still waiting for medical records from [facility] where the patient was recently treated including the surgery she had performed a few months ago there, to review the records - Follow-up CRP and bone scan results, and further neurosurgery recommendations. # Major depressive disorder severe recurrent without psychosis -appreciate psychiatry consult, this is her new diagnosis after patient had been complaining of anxiousness and being emotional labile -Continue BuSpar, Klonopin, Cymbalta, follow-up further psychiatry recommendations. # Suspect opioid dependency. - Will judiciously use opioids, further recommendations from pain management consult as well Result Diagram: 01/27/19 0439 01/27/19 0439 Results 24hrs Laboratory Tests Test 01/28/19 18:58 C-Reactive Protein 0.7 Exam/Review of Systems Exam Vitals Vital Signs Date Temp Pulse Resp B/P (MAP) Pulse Ox O2 O2 Flow FiO2 Time Delivery Rate 01/29/19 98.1 80 18 122/85 97 Room Air 08:04 (97) Intake and Output 01/28/19 01/28/19 01/29/19 1515:00 23:00 07:00 IntakeIntake Total 500 ml BalanceBalance 500 ml Results Results 24hrs Laboratory Tests Test 01/28/19 18:58 C-Reactive Protein 0.7 Medications Medication Current Medications IV Flush (NS 3 ml) 3 ml PER PROTOCOL IV Last administered on 01/29/19at 08:25; Admin Dose 3 ML; Start 01/24/19 at 06:00 Ondansetron HCl (Zofran Inj) 4 mg Q6H PRN IV NAUSEA/VOMITING Last administered on 01/28/19at 01:49; Admin Dose 4 MG; Start 01/24/19 at 06:00 Acetaminophen (Tylenol Tab) 650 mg Q6H PRN PO .PAIN 1-3 OR TEMP; Start 01/24/19 at 06:00 Hydromorphone HCl (Dilaudid) 0.5 mg Q4H PRN IV .SEVERE PAIN 7-10 Last administered on 01/29/19at 13:45; Admin Dose 0.5 MG; Start 01/24/19 at 06:00 Docusate Sodium (Colace) 100 mg Q12H PRN PO .CONSTIPATION; Start 01/24/19 at 06:00 Bisacodyl (Dulcolax) 5 mg DAILY PRN PO .CONSTIPATION; Start 01/24/19 at 06:00 Enoxaparin Sodium (Lovenox) 40 mg DAILY SC Last administered on 01/29/19 08:24; Admin Dose 40 MG; Start 01/24/19 at 09:00 Baclofen (Lioresal) 10 mg TID PO Last administered on 01/29/19 12:41; Admin Dose 10 MG; Start 01/25/19 at 21:00 Acetaminophen/ Hydrocodone Bitart ([place] (5/325)) 1 tab Q6H PRN PO PAIN LEVEL 4-7 Last administered on 01/29/19 08:25; Admin Dose 1 TAB; Start 01/26/19 at 18:00 Clonazepam (Klonopin) 0.5 mg Q6 PRN PO anxiety Last administered on 01/29/19 09:40; Admin Dose 0.5 MG; Start 01/27/19 at 16:30 Buspirone HCl (Buspar) 5 mg BID NGT Last administered on 01/29/19 08:24; Admin Dose 5 MG; Start 01/27/19 at 21:00 Duloxetine HCl (Cymbalta) 30 mg BID PO Last administered on 01/29/19 08:24; Admin Dose 30 MG; Start 01/27/19 at 21:00 JOSEP CAMPOS Jan 29, 2019 14:44
[2019-01-29 19:50] VITALS: BP 114/61; PULSE 76; RESP 16
[2019-01-30] MEDS: HYDROCODONE/APAP (5/325) TAB PO PRN (00:11)
[2019-01-30] MEDS: HYDROmorphONE 0.5 MG/0.5 ML SYG IV PRN ×5 (01:14→21:35)
[2019-01-30 02:00] VITALS: BP 114/81; PULSE 72; RESP 16
[2019-01-30 07:35] VITALS: BP 107/74; PULSE 78; RESP 18
[2019-01-30] MEDS: BACLOFEN 10 MG TAB PO SCH ×3 (08:04→21:04)
[2019-01-30] MEDS: ENOXAPARIN 40 MG/0.4 ML SYG SC SCH (08:04)
[2019-01-30] MEDS: DULOXETINE 30 MG CAP DR PO SCH ×2 (08:04→21:04)
[2019-01-30] MEDS: BUSPIRONE 5 MG TAB NGT SCH ×2 (08:04→21:04)
--- NOTE | 2019-01-30 13:21 | CONS ---
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 Abernathy's pain is likely related to inadequate posterior decompression. I think she would benefit from a bilateral L4/5 foramenotomy. I explained to her that with such a revision surgery and with her multiplicity of symptoms, there is a high likelihood that she may not improve after surgery. She understands the risks and benefits and would like to proceed. I will work with the primary team to determine if this can be done as an outpatient versus inpatient. Consultation Date/Type/Reason Admit Date/Time Jan 24, 2019 at 05:59 Date of Consultation: Jan 30, 2019 Type of Consult Neurosurgery Date/Time of Note DATE: 01/30/19 TIME: 13:03 Hx of Present Illness Ms Abernathy is a 68 year old female with a history of grade II L4/5 anterolisthesis who underwent L4/5 TLIF on 10/23/[address] Francisco at [facility]. She has had uncontrolled back pain and claudication since then. She states that at her immediate postop visit, Dr. Francisco stated that something had changed on the xray. She also complains of pain down the left leg/ankle that started since the surgery, and thoracic and shoulder pain, that have been worsening recently. Past Medical History Medical History: no pertinent history Home Meds Reported Medications Ibuprofen* (Advil*) 200 Mg Capsule, 200 MG PO Q6H PRN for PAIN, CAP 01/24/19 Medications Current Medications IV Flush (NS 3 ml) 3 ml PER PROTOCOL IV Last administered on 01/29/19at 08:25; Admin Dose 3 ML; Start 01/24/19 at 06:00 Ondansetron HCl (Zofran Inj) 4 mg Q6H PRN IV NAUSEA/VOMITING Last administered on 01/28/19at 01:49; Admin Dose 4 MG; Start 01/24/19 at 06:00 Acetaminophen (Tylenol Tab) 650 mg Q6H PRN PO .PAIN 1-3 OR TEMP; Start 01/24/19 at 06:00 Hydromorphone HCl (Dilaudid) 0.5 mg Q4H PRN IV .SEVERE PAIN 7-10 Last administered on 01/30/19at 12:20; Admin Dose 0.5 MG; Start 01/24/19 at 06:00 Docusate Sodium (Colace) 100 mg Q12H PRN PO .CONSTIPATION; Start 01/24/19 at 06:00 Bisacodyl (Dulcolax) 5 mg DAILY PRN PO .CONSTIPATION; Start 01/24/19 at 06:00 Enoxaparin Sodium (Lovenox) 40 mg DAILY SC Last administered on 01/30/19at 08:04; Admin Dose 40 MG; Start 01/24/19 at 09:00 Baclofen (Lioresal) 10 mg TID PO Last administered on 01/30/19at 12:20; Admin Dose 10 MG; Start 01/25/19 at 21:00 Acetaminophen/ Hydrocodone Bitart ([place] (5/325)) 1 tab Q6H PRN PO PAIN LEVEL 4-7 Last administered on 01/30/19at 00:11; Admin Dose 1 TAB; Start 01/26/19 at 18 :00 Clonazepam (Klonopin) 0.5 mg Q6 PRN PO anxiety Last administered on 01/29/19at 09:40; Admin Dose 0.5 MG; Start 01/27/19 at 16:30 Buspirone HCl (Buspar) 5 mg BID NGT Last administered on 01/30/19at 08:04; Admin Dose 5 MG; Start 01/27/19 at 21:00 Duloxetine HCl (Cymbalta) 30 mg BID PO Last administered on 01/30/19at 08:04; Admin Dose 30 MG; Start 01/27/19 at 21:00 Allergies: Coded Allergies: No Known Allergy (Unverified , 01/24/19) Past Surgical History Past Surgical Hx: other (HPI) Social History Alcohol Use: other (Prior alcohol abuse disorder.) Smoking Status: Former smoker Drug Use: other (Remote history of drug use) Exam/Review of Systems Exam Vitals Vital Signs Date Temp Pulse Resp B/P (MAP) Pulse Ox O2 O2 Flow FiO2 Time Delivery Rate 01/30/19 98.1 78 18 107/74 92 07:35 (85) 01/30/19 Room Air 02:00 Intake and Output 01/29/19 01/29/19 01/30/19 1515:00 23:00 07:00 IntakeIntake Total 750 ml BalanceBalance 750 ml Exam 5/5 strength No numbness neg straight leg raise Results Result Diagram: 01/27/1943801/27/19 0439 Results 24hrs Laboratory Tests Test 01/30/19 06:20 Lab Scanned Report REFERENCE LAB Imaging Imaging Persistent L4/5 anterolisthesis with intact L4/5 instrumentation. Poor position of graft with subsidence Inadequate posterior decompression with bilateral L4/5 foraminal stenosis Medications Medication Current Medications IV Flush (NS 3 ml) 3 ml PER PROTOCOL IV Last administered on 01/29/19 08:25; Admin Dose 3 ML; Start 01/24/19 at 06:00 Ondansetron HCl (Zofran Inj) 4 mg Q6H PRN IV NAUSEA/VOMITING Last administered on 01/28/19 01:49; Admin Dose 4 MG; Start 01/24/19 at 06:00 Acetaminophen (Tylenol Tab) 650 mg Q6H PRN PO .PAIN 1-3 OR TEMP; Start 01/24/19 at 06:00 Hydromorphone HCl (Dilaudid) 0.5 mg Q4H PRN IV .SEVERE PAIN 7-10 Last admin istered on 01/30/19 12:20; Admin Dose 0.5 MG; Start 01/24/19 at 06:00 Docusate Sodium (Colace) 100 mg Q12H PRN PO .CONSTIPATION; Start 01/24/19 at 06:00 Bisacodyl (Dulcolax) 5 mg DAILY PRN PO .CONSTIPATION; Start 01/24/19 at 06:00 Enoxaparin Sodium (Lovenox) 40 mg DAILY SC Last administered on 01/30/19 08:04; Admin Dose 40 MG; Start 01/24/19 at 09:00 Baclofen (Lioresal) 10 mg TID PO Last administered on 01/30/19 12:20; Admin Dose 10 MG; Start 01/25/19 at 21:00 Acetaminophen/ Hydrocodone Bitart ([place] (5/325)) 1 tab Q6H PRN PO PAIN LEVEL 4-7 Last administered on 01/30/19 00:11; Admin Dose 1 TAB; Start 01/26/19 at 18:00 Clonazepam (Klonopin) 0.5 mg Q6 PRN PO anxiety Last administered on 7/4/19at 09:40; Admin Dose 0.5 MG; Start 01/27/19 at 16:30 Buspirone HCl (Buspar) 5 mg BID NGT Last administered on 01/30/19at 08:04; Admin Dose 5 MG; Start 01/27/19 at 21:00 Duloxetine HCl (Cymbalta) 30 mg BID PO Last administered on 01/30/19at 08:04; Admin Dose 30 MG; Start 01/27/19 at 21:00 FARRUKH PETERS MD Jan 30, 2019 13:21
--- NOTE | 2019-01-30 13:40 | PN ---
Date/Time of Note Date/Time of Note DATE: 01/30/19 TIME: 13:37 Assessment/Plan VTE Prophylaxis Risk score (from Nsg)>0 risk: 3 SCD applied (from Nsg): No SCD contraindicated: other Pharmacological prophylaxis: LMWH Lines/Catheters IV Catheter Type (from Nrsg): Peripheral IV Urinary Cath still in place: No Assessment/Plan Hospital Course S: Patient seen by neurosurgery team earlier today. Still having some complaints of low back pain occasionally, but ambulating and tolerating diet. O: VS - see below PE: General: Adequately built woman lying in bed, talking on the phone. HEENT: Normocephalic, atraumatic. Eyes: Anicteric sclerae, conjunctivae clear. ENT: Nasal septum midline, oral mucosa moist. Neck supple, no JVD noticed. Respiratory: Bilaterally clear breath sounds. No use of accessory muscles of respiration. No adventitious breath sounds. Cardiovascular: S1, S2 heard. No murmurs or gallops. Abdomen: Soft, nontender, and nondistended. Bowel sounds positive in all 4 quadrants. Back: Healed surgical scar (midline) over the lumbar spine. No midline or paraspinal tenderness. Extremities: No cyanosis, no clubbing, no edema. Peripheral pulses palpable. MRI L-spine January 26, 2019: IMPRESSION: No evidence for epidural abscess. Again seen is significant grade 2 anterolisthesis of L4-5 with uncovering of the intervertebral disc and erosive endplate changes with some endplate enhancement. Diskitis cannot be excluded with this MRI appearance and comparison with previous studies would likely be most helpful. Postsurgical changes from prior L4-5 fusion are again seen. Disc spacer device is not well seen and if 1 was present, it is likely predominately resorbed. Other mild degenerative changes as above. Lumbar x-rays: IMPRESSION: No change anterolisthesis of L4-L5 with no new fractures noted. No change on the flexion/extension views. Assessment/Plan: 68-year-old woman with a past medical history of chronic back pain who had a lumbar spine surgery in September 2018 and was getting [facility] who was brought into the emergency room because of uncontrolled pain. # Low back pain in a patient with recent surgery to the lumbar spine- lumbar spine surgery apparently by a Dr. Loyola? at [facility] on 10/23/2018- Lumbar spine CT showing postsurgical changes L4-5 with grade 2 anterolisthesis, severe disc space narrowing, endplate erosive changes, and probable fragmented disc spacer device. MRI L-spine results reviewed as well. - Continue opioid analgesics and muscle relaxants. Also trying wean off IV opioids onto [id number] further recommendations from pain management consult - Continue PT while patient in house - Follow-up bone scan results (scheduled for Saturday), and further neurosurgery recommendations. # Major depressive disorder severe recurrent without psychosis - appreciate psychiatry consult, this is her new diagnosis after patient had been complaining of anxiousness and being emotional labile -Continue BuSpar, Klonopin, Cymbalta, follow-up further psychiatry recommendations. # Suspect opioid dependency. -Follow-up further recommendations from pain management consult as well Result Diagram: 01/27/19 0439 01/27/199 Results 24hrs Laboratory Tests Test 01/30/19 06:20 Lab Scanned Report REFERENCE LAB Exam/Review of Systems Exam Vitals Vital Signs Date Temp Pulse Resp B/P (MAP) Pulse Ox O2 O2 Flow FiO2 Time Delivery Rate 01/30/19 98.1 78 18 107/74 92 07:35 (85) 01/30/19 Room Air 02:00 Intake and Output 01/29/19 01/29/19 01/30/19 1515:00 23:00 07:00 IntakeIntake Total 750 ml BalanceBalance 750 ml Results Results 24hrs Laboratory Tests Test 01/30/19 06:20 Lab Scanned Report REFERENCE LAB Medications Medication Current Medications IV Flush (NS 3 ml) 3 ml PER PROTOCOL IV Last administered on 01/29/19at 08:25; Admin Dose 3 ML; Start 01/24/19 at 06:00 Ondansetron HCl (Zofran Inj) 4 mg Q6H PRN IV NAUSEA/VOMITING Last administered on 01/28/19at 01:49; Admin Dose 4 MG; Start 01/24/19 at 06:00 Acetaminophen (Tylenol Tab) 650 mg Q6H PRN PO .PAIN 1-3 OR TEMP; Start 01/24/19 at 06:00 Hydromorphone HCl (Dilaudid) 0.5 mg Q4H PRN IV .SEVERE PAIN 7-10 Last administered on 01/30/19at 12:20; Admin Dose 0.5 MG; Start 01/24/19 at 06:00 Docusate Sodium (Colace) 100 mg Q12H PRN PO .CONSTIPATION; Start 01/24/19 at 06:00 Bisacodyl (Dulcolax) 5 mg DAILY PRN PO .CONSTIPATION; Start 01/24/19 at 06:00 Enoxaparin Sodium (Lovenox) 40 mg DAILY SC Last administered on 01/30/19 08:04; Admin Dose 40 MG; Start 01/24/19 at 09:00 Baclofen (Lioresal) 10 mg TID PO Last administered on 01/30/19at 12:20; Admin Dose 10 MG; Start 01/25/19 at 21:00 Acetaminophen/ Hydrocodone Bitart ([place] (5/325)) 1 tab Q6H PRN PO PAIN LEVEL 4-7 Last administered on 01/30/19at 00:11; Admin Dose 1 TAB; Start 01/26/19 at 18:00 Clonazepam (Klonopin) 0.5 mg Q6 PRN PO anxiety Last administered on 01/29/19at 09:40; Admin Dose 0.5 MG; Start 01/27/19 at 16:30 Buspirone HCl (Buspar) 5 mg BID NGT Last administered on 01/30/19 08:04; Admin Dose 5 MG; Start 01/27/19 at 21:00 Duloxetine HCl (Cymbalta) 30 mg BID PO Last administered on 01/30/19 08:04; Admin Dose 30 MG; Start 01/27/19 at 21:00 JOSEP CAMPOS Jan 30, 2019 13:40
[2019-01-30 15:52] VITALS: BP 111/60; PULSE 88; RESP 18
[2019-01-30 19:53] VITALS: BP 128/73; PULSE 65; RESP 18
[2019-01-30] MEDS: clonAZEPAM 0.5 MG TAB PO PRN (22:38)
[2019-01-31 02:12] VITALS: BP 118/81; PULSE 85; RESP 18
[2019-01-31] MEDS: HYDROmorphONE 0.5 MG/0.5 ML SYG IV PRN ×5 (04:57→23:54)
[2019-01-31 07:40] VITALS: BP 111/67; PULSE 83; RESP 18
[2019-01-31] MEDS: BUSPIRONE 5 MG TAB NGT SCH ×2 (09:11→20:48)
[2019-01-31] MEDS: DULOXETINE 30 MG CAP DR PO SCH ×2 (09:11→20:48)
[2019-01-31] MEDS: BACLOFEN 10 MG TAB PO SCH ×3 (09:11→20:48)
[2019-01-31] MEDS: ENOXAPARIN 40 MG/0.4 ML SYG SC SCH (09:12)
[2019-01-31 14:00] VITALS: BP 115/78; PULSE 81; RESP 18
--- NOTE | 2019-01-31 14:05 | PN ---
Date/Time of Note Date/Time of Note DATE: 01/31/19 TIME: 14:04 Assessment/Plan VTE Prophylaxis Risk score (from Nsg)>0 risk: 3 SCD applied (from Nsg): No SCD contraindicated: other Pharmacological prophylaxis: LMWH Lines/Catheters IV Catheter Type (from Nrsg): Peripheral IV Urinary Cath still in place: No Assessment/Plan Hospital Course S: Patient had no acute events overnight. Seen by neurosurgery team yesterday, still with some occasional back pain complaints. O: VS - see below PE: General: Adequately built woman lying in bed, talking on the phone. HEENT: Normocephalic, atraumatic. Eyes: Anicteric sclerae, conjunctivae clear. ENT: Nasal septum midline, oral mucosa moist. Neck supple, no JVD noticed. Respiratory: Bilaterally clear breath sounds. No use of accessory muscles of respiration. No adventitious breath sounds. Cardiovascular: S1, S2 heard. No murmurs or gallops. Abdomen: Soft, nontender, and nondistended. Bowel sounds positive in all 4 quadrants. Back: Healed surgical scar (midline) over the lumbar spine. No midline or paraspinal tenderness. Extremities: No cyanosis, no clubbing, no edema. Peripheral pulses palpable. MRI L-spine January 26, 2019: IMPRESSION: No evidence for epidural abscess. Again seen is significant grade 2 anterolisthesis of L4-5 with uncovering of the intervertebral disc and erosive endplate changes with some endplate enhancement. Diskitis cannot be excluded with this MRI appearance and comparison with previous studies would likely be most helpful. Postsurgical changes from prior L4-5 fusion are again seen. Disc spacer device is not well seen and if 1 was present, it is likely predominately resorbed. Other mild degenerative changes as above. Lumbar x-rays: IMPRESSION: No change anterolisthesis of L4-L5 with no new fractures noted. No change on the flexion/extension views. Assessment/Plan: 68-year-old woman with a past medical history of chronic back pain who had a lumbar spine surgery in September 2018 and was getting rehabilitation at a local half-way facility who was brought into the emergency room manny use of uncontrolled pain. # Low back pain in a patient with recent surgery to the lumbar spine- lumbar spine surgery apparently by a Dr. Francisco at [facility] on 10/23/2018- Lumbar spine CT showing postsurgical changes L4-5 with grade 2 anterolisthesis, severe disc space narrowing, endplate erosive changes, and probable fragmented disc spacer device. MRI L-spine results reviewed as well. - Continue opioid analgesics and muscle relaxants. Also trying wean off IV opioids onto [id number] further recommendations from pain management consult - Continue PT while patient in house - Follow-up bone scan results (scheduled for Saturday), and further neurosurgery recommendations-they are recommending bilateral L4/5 foramenotomy which patient is agreed to, this will likely be performed in 4 days # Major depressive disorder severe recurrent without psychosis - appreciate psychiatry consult, this is her new diagnosis after patient had been complaining of anxiousness and being emotional labile -Continue BuSleandra, Klonoele, Cymbalta, follow-up further psychiatry recommendations. # Suspect opioid dependency. -Follow-up further recommendations from pain management consult as well Result Diagram: 01/27/19 0439 01/27/199 Results 24hrs Laboratory Tests Test 01/31/19 04:19 Iron Level 48 Total Iron Binding Capacity 366 Percent Iron Saturation 13 L Exam/Review of Systems Exam Vitals Vital Signs Date Temp Pulse Resp B/P (MAP) Pulse Ox O2 O2 Flow FiO2 Time Delivery Rate 01/31/19 98.0 83 18 111/67 94 07:40 (82) 01/30/19 Room Air 15:52 Results Results 24hrs Laboratory Tests Test 01/31/19 04:19 Iron Level 48 Total Iron Binding Capacity 366 Percent Iron Saturation 13 L Medications Medication Current Medications IV Flush (NS 3 ml) 3 ml PER PROTOCOL IV Last administered on 01/29/19at 08:25; Admin Dose 3 ML; Start 01/24/19 at 06:00 Ondansetron HCl (Zofran Inj) 4 mg Q6H PRN IV NAUSEA/VOMITING Last administered on 01/28/19at 01:49; Admin Dose 4 MG; Start 01/24/19 at 06:00 Acetaminophen (Tylenol Tab) 650 mg Q6H PRN PO .PAIN 1-3 OR TEMP; Start 01/24/19 at 06:00 Hydromorphone HCl (Dilaudid) 0.5 mg Q4H PRN IV .SEVERE PAIN 7-10 Last administered on 01/31/19at 13:35; Admin Dose 0.5 MG; Start 01/24/19 at 06:00 Docusate Sodium (Colace) 100 mg Q12H PRN PO .CONSTIPATION; Start 01/24/19 at 06:00 Bisacodyl (Dulcolax) 5 mg DAILY PRN PO .CONSTIPATION; Start 01/24/19 at 06:00 Enoxaparin Sodium (Lovenox) 40 mg DAILY SC Last administered on 01/31/19 09:12; Admin Dose 40 MG; Start 01/24/19 at 09:00; Stop 02/03/19 at 09:00 Baclofen (Lioresal) 10 mg TID PO Last administered on 01/31/19 13:34; Admin Dose 10 MG; Start 01/25/19 at 21:00 Acetaminophen/ Hydrocodone Bitart ([place] (5/325)) 1 tab Q6H PRN PO PAIN LEVEL 4-7 Last administered on 01/30/19 00:11; Admin Dose 1 TAB; Start 01/26/19 at 18:00 Clonazepam (Klonopin) 0.5 mg Q6 PRN PO anxiety Last administered on 01/30/19 22:38; Admin Dose 0.5 MG; Start 01/27/19 at 16:30 Buspirone HCl (Buspar) 5 mg BID NGT Last administered on 01/31/19 09:11; Admin Dose 5 MG; Start 01/27/19 at 21:00 Duloxetine HCl (Cymbalta) 30 mg BID PO Last administered on 01/31/19 09:11; Admin Dose 30 MG; Start 01/27/19 at 21:00 JOSEP CAMPOS Jan 31, 2019 14:05
[2019-01-31 20:00] VITALS: BP 110/60; PULSE 75; RESP 17
[2019-02-01 02:00] VITALS: BP 122/78; PULSE 76; RESP 18
[2019-02-01 07:30] VITALS: BP 136/80; PULSE 78; RESP 17
[2019-02-01] MEDS: BUSPIRONE 5 MG TAB NGT SCH ×2 (09:05→20:59)
[2019-02-01] MEDS: DULOXETINE 30 MG CAP DR PO SCH ×2 (09:06→20:59)
[2019-02-01] MEDS: BACLOFEN 10 MG TAB PO SCH ×3 (09:06→20:59)
[2019-02-01] MEDS: HYDROmorphONE 0.5 MG/0.5 ML SYG IV PRN ×4 (09:06→22:26)
[2019-02-01] MEDS: ENOXAPARIN 40 MG/0.4 ML SYG SC SCH (09:07)
--- NOTE | 2019-02-01 12:36 | PN ---
Date/Time of Note Date/Time of Note DATE: 02/01/19 TIME: 12:35 Assessment/Plan VTE Prophylaxis Risk score (from Nsg)>0 risk: 3 SCD applied (from Nsg): No SCD contraindicated: other Pharmacological prophylaxis: LMWH Lines/Catheters IV Catheter Type (from Nrsg): Peripheral IV Urinary Cath still in place: No Assessment/Plan Hospital Course S: Patient had no acute events overnight. O: VS - see below PE: General: Adequately built woman lying in bed, talking on the phone. HEENT: Normocephalic, atraumatic. Eyes: Anicteric sclerae, conjunctivae clear. ENT: Nasal septum midline, oral mucosa moist. Neck supple, no JVD noticed. Respiratory: Bilaterally clear breath sounds. No use of accessory muscles of respiration. No adventitious breath sounds. Cardiovascular: S1, S2 heard. No murmurs or gallops. Abdomen: Soft, nontender, and nondistended. Bowel sounds positive in all 4 quadrants. Back: Healed surgical scar (midline) over the lumbar spine. No midline or paraspinal tenderness. Extremities: No cyanosis, no clubbing, no edema. Peripheral pulses palpable. MRI L-spine January 26, 2019: IMPRESSION: No evidence for epidural abscess. Again seen is significant grade 2 anterolisthesis of L4-5 with uncovering of the intervertebral disc and erosive endplate changes with some endplate enhancement. Diskitis cannot be excluded with this MRI appearance and comparison with previous studies would likely be most helpful. Postsurgical changes from prior L4-5 fusion are again seen. Disc spacer device is not well seen and if 1 was present, it is likely predominately resorbed. Other mild degenerative changes as above. Lumbar x-rays: IMPRESSION: No change anterolisthesis of L4-L5 with no new fractures noted. No change on the flexion/extension views. Assessment/Plan: 68-year-old woman with a past medical history of chronic back pain who had a lumbar spine surgery in September 2018 and was getting rehabilitation at a local intermediate facility who was brought into the emergency room because of uncontrolled pain. # Low back pain in a patient with recent surgery to the lumbar spine- lumbar spine surgery apparently by a Dr. Francisco at [facility] on 10/23/2018- Lumbar spine CT showing postsurgical changes L4-5 with grade 2 anterolisthesis, severe disc space narrowing, endplate erosive changes, and probable fragmented disc spacer device. MRI L-spine results reviewed as well. - Continue opioid analgesics and muscle relaxants. Also trying wean off IV opioids onto [id number] further recommendations from pain management consult - Continue PT while patient in house - Follow-up bone scan results (scheduled fortomorrow), and further neurosurgery recommendations-they are recommending bilateral L4/5 foramenotomy which patient is agreed to, this will likely be performed in 3 days # Major depressive disorder severe recurrent without psychosis - appreciate psy chiatry consult, this is her new diagnosis after patient had been complaining of anxiousness and being emotional labile -Continue BuSpar, Klonopin, Cymbalta, follow-up further psychiatry recommendations. # Suspect opioid dependency. -Follow-up further recommendations from pain management consult as well Exam/Review of Systems Exam Vitals Vital Signs Date Temp Pulse Resp B/P (MAP) Pulse Ox O2 O2 Flow FiO2 Time Delivery Rate 02/01/19 98.4 78 17 136/80 95 07:30 (98) 02/01/19 Room Air 02:00 Intake and Output 01/31/19 01/31/19 02/01/19 1515:00 23:00 07:00 IntakeIntake Total 400 ml 320 ml BalanceBalance 400 ml 320 ml Medications Medication Current Medications IV Flush (NS 3 ml) 3 ml PER PROTOCOL IV Last administered on 01/29/19at 08:25; Admin Dose 3 ML; Start 01/24/19 at 06:00 Ondansetron HCl (Zofran Inj) 4 mg Q6H PRN IV NAUSEA/VOMITING Last administered on 01/28/19at 01:49; Admin Dose 4 MG; Start 01/24/19 at 06:00 Acetaminophen (Tylenol Tab) 650 mg Q6H PRN PO .PAIN 1-3 OR TEMP; Start 01/24/19 at 06:00 Hydromorphone HCl (Dilaudid) 0.5 mg Q4H PRN IV .SEVERE PAIN 7-10 Last administered on 02/01/19at 09:06; Admin Dose 0.5 MG; Start 01/24/19 at 06:00 Docusate Sodium (Colace) 100 mg Q12H PRN PO .CONSTIPATION; Start 01/24/19 at 06:00 Bisacodyl (Dulcolax) 5 mg DAILY PRN PO .CONSTIPATION; Start 01/24/19 at 06:00 Enoxaparin Sodium (Lovenox) 40 mg DAILY SC Last administered on 02/01/19 09:07; Admin Dose 40 MG; Start 01/24/19 at 09:00; Stop 02/03/19 at 09:00 Baclofen (Lioresal) 10 mg TID PO Last administered on 02/01/19 09:06; Admin Dose 10 MG; Start 01/25/19 at 21:00 Acetaminophen/ Hydrocodone Bitart ([place] (5/325)) 1 tab Q6H PRN PO PAIN LEVEL 4-7 Last administered on 01/30/19 00:11; Admin Dose 1 TAB; Start 01/26/19 at 18:00 Clonazepam (Klonopin) 0.5 mg Q6 PRN PO anxiety Last administered on 01/30/19 22:38; Admin Dose 0.5 MG; Start 01/27/19 at 16:30 Buspirone HCl (Buspar) 5 mg BID NGT Last administered on 02/01/19 09:05; Admin Dose 5 MG; Start 01/27/19 at 21:00 Duloxetine HCl (Cymbalta) 30 mg BID PO Last administered on 02/01/19 09:06; Admin Dose 30 MG; Start 01/27/19 at 21:00 JOSEP CAMPOS Feb 01, 2019 12:36
[2019-02-01 15:23] VITALS: BP 102/70; RESP 18
[2019-02-01 20:00] VITALS: BP 138/81; PULSE 74; RESP 17
[2019-02-02 02:11] VITALS: BP 132/72; PULSE 68; RESP 18
[2019-02-02] MEDS: HYDROmorphONE 0.5 MG/0.5 ML SYG IV PRN ×5 (05:24→22:12)
[2019-02-02 08:01] VITALS: BP 117/77; PULSE 65; RESP 15
[2019-02-02] MEDS: ENOXAPARIN 40 MG/0.4 ML SYG SC SCH (09:00)
[2019-02-02] MEDS: BUSPIRONE 5 MG TAB NGT SCH ×2 (09:31→20:13)
[2019-02-02] MEDS: DULOXETINE 30 MG CAP DR PO SCH ×2 (09:31→20:12)
[2019-02-02] MEDS: BACLOFEN 10 MG TAB PO SCH ×3 (09:31→20:12)
[2019-02-02 14:10] VITALS: BP 100/68; PULSE 62; RESP 15
--- NOTE | 2019-02-02 17:04 | PN ---
Date/Time of Note Date/Time of Note DATE: 02/02/19 TIME: 17:02 Assessment/Plan VTE Prophylaxis Risk score (from Nsg)>0 risk: 3 SCD applied (from Nsg): No SCD contraindicated: low risk/ambulating Pharmacological prophylaxis: NA/contraindicated Pharm contraindication: low risk/ambulating Lines/Catheters IV Catheter Type (from Nrsg): Peripheral IV Urinary Cath still in place: No Assessment/Plan Assessment/Plan 68-year-old woman with a past medical history of chronic back pain who had a lumbar spine surgery in September 2018 and was getting rehabilitation at a local nursing home facility who was brought into the emergency room because of uncontrolled pain. # Low back pain in a patient with recent surgery to the lumbar spine- lumbar spine surgery apparently by a Dr. Francisco at [facility] on 10/23/2018- Lumbar spine CT showing postsurgical changes L4-5 with grade 2 anterolisthesis, severe disc space narrowing, endplate erosive changes, and probable fragmented disc spacer device. MRI L-spine results reviewed as well. - Continue opioid analgesics and muscle relaxants. - Continue PT while patient in house - Follow-up bone scan results - Dr. Long is planning for bilateral L4/5 foramenotomy which patient is agreed to, scheduled this Saturday AM. # Major depressive disorder severe recurrent without psychosis - appreciate psychiatry consult, this is her new diagnosis after patient had been complaining of anxiousness and being emotional labile -Continue BuSpar, Klonopin, Cymbalta, follow-up further psychiatry r ecommendations. Subjective 24 Hr Interval Summary Free Text/Dictation Patient doing well. Pain well controlled. Exam/Review of Systems Exam Vitals Vital Signs Date Temp Pulse Resp B/P (MAP) Pulse Ox O2 O2 Flow FiO2 Time Delivery Rate 02/02/19 98.0 62 15 100/68 94 Room Air 14:10 (79) Exam General: Adequately built woman lying in bed, working on her laptop. HEENT: Normocephalic, atraumatic. Eyes: Anicteric sclerae, conjunctivae clear. ENT: Nasal septum midline, oral mucosa moist. Neck supple, no JVD noticed. Respiratory: Bilaterally clear breath sounds. No use of accessory muscles of respiration. No adventitious breath sounds. Cardiovascular: S1, S2 heard. No murmurs or gallops. Abdomen: Soft, nontender, and nondistended. Bowel sounds positive in all 4 quadrants. Back: Healed surgical scar (midline) over the lumbar spine. No midline or paraspinal tenderness. Extremities: No cyanosis, no clubbing, no edema. Peripheral pulses palpable. Medications Medication Current Medications IV Flush (NS 3 ml) 3 ml PER PROTOCOL IV Last administered on 01/29/19 08:25; Admin Dose 3 ML; Start 01/24/19 at 06:00 Ondansetron HCl (Zofran Inj) 4 mg Q6H PRN IV NAUSEA/VOMITING Last administered on 01/28/19 01:49; Admin Dose 4 MG; Start 01/24/19 at 06:00 Acetaminophen (Tylenol Tab) 650 mg Q6H PRN PO .PAIN 1-3 OR TEMP; Start 01/24/19 at 06:00 Hydromorphone HCl (Dilaudid) 0.5 mg Q4H PRN IV .SEVERE PAIN 7-10 Last administered on 02/02/19 13:47; Admin Dose 0.5 MG; Start 01/24/19 at 06:00 Docusate Sodium (Colace) 100 mg Q12H PRN PO .CONSTIPATION; Start 01/24/19 at 06:00 Bisacodyl (Dulcolax) 5 mg DAILY PRN PO .CONSTIPATION; Start 01/24/19 at 06:00 Enoxaparin Sodium (Lovenox) 40 mg DAILY SC Last administered on 02/01/19 09:07; Admin Dose 40 MG; Start 01/24/19 at 09:00; Stop 02/03/19 at 09:00 Baclofen (Lioresal) 10 mg TID PO Last administered on 02/02/19 13:07; Admin Dose 10 MG; Start 01/25/19 at 21:00 Acetaminophen/ Hydrocodone Bitart ([place] (5/325)) 1 tab Q6H PRN PO PAIN LEVEL 4-7 Last administered on 01/30/19 00:11; Admin Dose 1 TAB; Start 01/26/19 at 18:00 Clonazepam (Klonopin) 0.5 mg Q6 PRN PO anxiety Last administered on 01/30/19 22:38; Admin Dose 0.5 MG; Start 01/27/19 at 16:30 Buspirone HCl (Buspar) 5 mg BID NGT Last administered on 02/02/19 09:31; Admin Dose 5 MG; Start 01/27/19 at 21:00 Duloxetine HCl (Cymbalta) 30 mg BID PO Last administered on 02/02/19at 09:31; Admin Dose 30 MG; Start 01/27/19 at 21:00 BRIDGET COONEY MD Feb 02, 2019 17:03
[2019-02-02 19:50] VITALS: BP 95/52; PULSE 74; RESP 18
[2019-02-03 01:41] VITALS: BP 98/56; PULSE 70; RESP 17
[2019-02-03 07:40] VITALS: BP 117/67; PULSE 88; RESP 18
[2019-02-03] MEDS: HYDROmorphONE 0.5 MG/0.5 ML SYG IV PRN ×4 (07:50→19:48)
[2019-02-03] MEDS: HYDROCODONE/APAP (5/325) TAB PO PRN (08:04)
[2019-02-03] MEDS: ENOXAPARIN 40 MG/0.4 ML SYG SC SCH (09:00)
[2019-02-03] MEDS: DULOXETINE 30 MG CAP DR PO SCH ×2 (09:04→20:13)
[2019-02-03] MEDS: BUSPIRONE 5 MG TAB PO SCH ×2 (09:04→20:13)
[2019-02-03] MEDS: BACLOFEN 10 MG TAB PO SCH ×3 (09:04→20:13)
--- NOTE | 2019-02-03 14:06 | PN ---
Date/Time of Note Date/Time of Note DATE: 02/03/19 TIME: 14:03 Assessment/Plan VTE Prophylaxis Risk score (from Nsg)>0 risk: 4 SCD applied (from Nsg): Yes Pharmacological prophylaxis: NA/contraindicated Pharm contraindication: low risk/ambulating Lines/Catheters IV Catheter Type (from Nrsg): Peripheral IV Urinary Cath still in place: No Assessment/Plan Assessment/Plan 68-year-old woman with a past medical history of chronic back pain who had a lumbar spine surgery in September 2018 and was getting rehabilitation at a local long-term facility who was brought into the emergency room because of uncontrolled pain. # Low back pain in a patient with recent surgery to the lumbar spine- lumbar spine surgery apparently by a Dr. Francisco at [facility] on 10/23/2018- Lumbar spine CT showing postsurgical changes L4-5 with grade 2 anterolisthesis, severe disc space narrowing, endplate erosive changes, and probable fragmented disc spacer device. MRI L-spine results reviewed as well. - Continue opioid analgesics and muscle relaxants. - Continue PT while patient in house - [place] bone scan shows benign reactive bony changes at surgical site. - Dr. Long is planning for bilateral L4/5 foramenotomy which patient is agreed to, scheduled this Saturday AM. # Major depressive disorder severe recurrent without psychosis - appreciate psychiatry consult, this is her new diagnosis after patient had been complaining of anxiousness and being emotional labile -Continue BuSpar, Klonopin, Cymbalta, follow-up further psychiatry recommendations. Subjective 24 Hr Interval Summary Free Text/Dictation No acute overnight events. Exam/Review of Systems Exam Vitals Vital Signs Date Temp Pulse Resp B/P (MAP) Pulse Ox O2 O2 Flow FiO2 Time Delivery Rate 02/03/19 97.6 88 18 117/67 97 Room Air 07:40 (84) Intake and Output 02/02/19 02/02/19 02/03/19 1414:59 22:59 06:59 IntakeIntake Total 400 ml 560 ml BalanceBalance 400 ml 560 ml Exam General: Adequately built woman lying in bed, working on her laptop. HEENT: Normocephalic, atraumatic. Eyes: Anicteric sclerae, conjunctivae clear. ENT: Nasal septum midline, oral mucosa moist. Neck supple, no JVD noticed. Respiratory: Bilaterally clear breath sounds. No use of accessory muscles of respiration. No adventitious breath sounds. Cardiovascular: S1, S2 heard. No murmurs or gallops. Abdomen: Soft, nontender, and nondistended. Bowel sounds positive in all 4 quad rants. Back: Healed surgical scar (midline) over the lumbar spine. No midline or paraspinal tenderness. Extremities: No cyanosis, no clubbing, no edema. Peripheral pulses palpable. Medications Medication Current Medications IV Flush (NS 3 ml) 3 ml PER PROTOCOL IV Last administered on 01/29/19 08:25; Admin Dose 3 ML; Start 01/24/19 at 06:00 Ondansetron HCl (Zofran Inj) 4 mg Q6H PRN IV NAUSEA/VOMITING Last administered on 01/28/19 01:49; Admin Dose 4 MG; Start 01/24/19 at 06:00 Acetaminophen (Tylenol Tab) 650 mg Q6H PRN PO .PAIN 1-3 OR TEMP; Start 01/24/19 at 06:00 Hydromorphone HCl (Dilaudid) 0.5 mg Q4H PRN IV .SEVERE PAIN 7-10 Last administered on 02/03/19 11:34; Admin Dose 0.5 MG; Start 01/24/19 at 06:00 Docusate Sodium (Colace) 100 mg Q12H PRN PO .CONSTIPATION; Start 01/24/19 at 06:00 Bisacodyl (Dulcolax) 5 mg DAILY PRN PO .CONSTIPATION; Start 01/24/19 at 06:00 Baclofen (Lioresal) 10 mg TID PO Last administered on 02/03/19 13:03; Admin Dose 10 MG; Start 01/25/19 at 21:00 Acetaminophen/ Hydrocodone Bitart ([place] (5/325)) 1 tab Q6H PRN PO PAIN LEVEL 4-7 Last administered on 02/03/19 08:04; Admin Dose 1 TAB; Start 01/26/19 at 18:00 Clonazepam (Klonopin) 0.5 mg Q6 PRN PO anxiety Last administered on 01/30/19 22:38; Admin Dose 0.5 MG; Start 01/27/19 at 16:30 Duloxetine HCl (Cymbalta) 30 mg BID PO Last administered on 7/9/19at 09:04; Admin Dose 30 MG; Start 01/27/19 at 21:00 Buspirone HCl (Buspar) 5 mg BID PO Last administered on 02/03/19at 09:04; Admin Dose 5 MG; Start 02/03/19 at 09:00 BRIDGET COONEY MD Feb 03, 2019 14:06
[2019-02-03 14:07] VITALS: BP 100/55; PULSE 72; RESP 18
[2019-02-03] MEDS: DOCUSATE SODIUM 100 MG CAP PO PRN (14:26)
[2019-02-03 20:00] VITALS: BP 105/65; PULSE 65; RESP 19
[2019-02-03] MEDS: clonAZEPAM 0.5 MG TAB PO PRN (22:00)
[2019-02-04] VITALS (20 sets, daily range): BP systolic 93–128; BP diastolic 53–88; PULSE 77–114; RESP 10–50
[2019-02-04] MEDS: HYDROmorphONE 0.5 MG/0.5 ML SYG IV PRN ×3 (01:21→22:04)
[2019-02-04] MEDS ORDERED: GELATIN SIZE 100 SPONGE ONE (07:07)
[2019-02-04] MEDS ORDERED: THROMBIN 5000 UNIT VIAL ONE (07:08)
[2019-02-04] MEDS ORDERED: POLYMYXIN/BACITRACIN 1L IRRIG ONE (07:10)
--- NOTE | 2019-02-04 07:44 | PREAC ---
Date/Time of Note Date/Time of Note DATE: 02/04/19 TIME: 07:42 Anesthesia Eval and Record Evaluation Time Pre-Procedure Interview DATE: 02/04/19 TIME: 07:42 Age 68 Sex male NPO: 8 hrs Preoperative diagnosis bilateral L4-L5 FORAMINAL STENOSIS Planned procedure bilateral L4-L5 FORAMINECTOMY Past Medical History Past Medical History: Includes Psych: Depression Surgery & Anesthesia Issues No known issue Meds Anticoagulation: No Beta Dario within 24 hr: No Reason Beta Dario not given: Pt. not on B-Dario Reported Medications Ibuprofen* (Advil*) 200 Mg Capsule, 200 MG PO Q6H PRN for PAIN, CAP 01/24/19 Current Medications IV Flush (NS 3 ml) 3 ml PER PROTOCOL IV Last administered on 01/29/19at 08:25; Admin Dose 3 ML; Start 01/24/19 at 06:00 Ondansetron HCl (Zofran Inj) 4 mg Q6H PRN IV NAUSEA/VOMITING Last administered on 01/28/19at 01:49; Admin Dose 4 MG; Start 01/24/19 at 06:00 Acetaminophen (Tylenol Tab) 650 mg Q6H PRN PO .PAIN 1-3 OR TEMP; Start 01/24/19 at 06:00 Hydromorphone HCl (Dilaudid) 0.5 mg Q4H PRN IV .SEVERE PAIN 7-10 Last administered on 02/04/19at 01:21; Admin Dose 0.5 MG; Start 01/24/19 at 06:00 Docusate Sodium (Colace) 100 mg Q12H PRN PO .CONSTIPATION Last administered on 02/03/19at 14:26; Admin Dose 100 MG; Start 01/24/19 at 06:00 Bisacodyl (Dulcolax) 5 mg DAILY PRN PO .CONSTIPATION; Start 01/24/19 at 06:00 Baclofen (Lioresal) 10 mg TID PO Last administered on 02/03/19at 20:13; Admin Dose 10 MG; Start 01/25/19 at 21:00 Acetaminophen/ Hydrocodone Bitart ([place] (5/325)) 1 tab Q6H PRN PO PAIN LEVEL 4-7 Last administered on 02/03/19at 08:04; Admin Dose 1 TAB; Start 01/26/19 at 18:00 Clonazepam (Klonopin) 0.5 mg Q6 PRN PO anxiety Last administered on 02/03/19at 22:00; Admin Dose 0.5 MG; Start 01/27/19 at 16:30 Duloxetine HCl (Cymbalta) 30 mg BID PO Last administered on 02/03/19at 20:13; Admin Dose 30 MG; Start 01/27/19 at 21:00 Buspirone HCl (Buspar) 5 mg BID PO Last administered on 02/03/19at 20:13; Admin Dose 5 MG; Start 02/03/19 at 09:00 Meds reviewed: Yes Allergies Coded Allergies: No Known Allergy (Unverified , 01/24/19) Allergies Reviewed: Yes Labs/Studies Labs Reviewed: Reviewed by anesthesiologist Result Diagram: 02/03/19 1427 02/03/19 1427 Laboratory Tests 02/03/19 14:27 test: Negative Pre-procedure Exam Last vitals Vital Signs Date Temp Pulse Resp B/P (MAP) Pulse Ox O2 O2 Flow FiO2 Time Delivery Rate 02/04/19 98.4 77 17 117/74 98 02:00 (88) 02/03/19 Room Air 14:07 Airway: Adequate mouth opening, Adequate thyromental dist Mallampati: Mallampati II Teeth: Normal Lung: Normal Heart: Normal ASA Physical Status ASA physical status: 1 Emergency: None Planned Anesthetic General/MAC: ETT Planned Pain Management Parenteral pain med Pre-operative Attestations Prior to commencing anesthesia and surgery, the patient was re-evaluated, there was verification of: *The patient's identity *The results of appropriate recent lab work and preoperative vital signs *The above evaluation not changing prior to induction *Anesthetic plan, risk benefits, alternative and complications discussed with patient/family; questions answered; patient/family understands, accepts and wishes to proceed. Rylan Vivar M.D. Feb 04, 2019 07:44
[2019-02-04] MEDS ORDERED: GLYCOPYRROLATE 0.4 MG INJ ONE (07:46)
[2019-02-04] MEDS ORDERED: NEOSTIGMINE 3 MG/3 ML SYRINGE ONE (07:46)
[2019-02-04] MEDS ORDERED: CEFAZOLIN 1 GM INJ ONE (07:46)
[2019-02-04] MEDS ORDERED: ROCURONIUM 50 MG INJ ONE (07:46)
[2019-02-04] MEDS ORDERED: PROPOFOL 20 ML ONE (07:46)
[2019-02-04] MEDS ORDERED: DEXAMETHASONE 4 MG/ML 5 ML INJ ONE (07:47)
[2019-02-04] MEDS ORDERED: MIDAZOLAM 1 MG/ML 2 ML INJ ONE ×2 (07:47→07:49)
[2019-02-04] MEDS ORDERED: ONDANSETRON 4 MG INJ ONE (07:47)
[2019-02-04] MEDS ORDERED: FENTAnyl 50 MCG/ML VIAL ONE ×2 (07:47→11:34)
--- NOTE | 2019-02-04 07:54 | OPR ---
Date/Time of Note Date/Time of Note DATE: 02/04/19 TIME: 07:27 Operative Report Procedure Date: Feb 04, 2019 Preoperative Diagnosis 1) Bilateral L4/5 neuroforaminal stenosis 2) L4/5 grade 2 spondylolisthesis Postoperative Diagnosis Same Operation/Procedure Performed 1) Bilateral L4/5 foramenotomies 2) Revision L4-5 posterior instrumentation 3) Revision L4-5 arthrodesis Surgeon Yoel Peters MD Director Institution none Anesthesia Type: general Estimated Blood Loss: 50 - 100 ml's Transfusion none Specimen none Grafts/Implants DePuy/Synthes posterior instrumentation revised (Left L5 pedicle screw, bilateral rods) Tubes/Drains 1 medium hemovac Complications none Pt Condition Post Procedure: stable Disposition: PACU Indications Ms. Abernathy is a 68 year old woman who underwent an L4/5 transforaminal lumbar interbody fusion with Dr. David Francisco at [facility] on 10/23/2018. Despite grade 2 sp ondylolisthesis and no reduction at surgery, only a minimal unilateral laminotomy was done. Postoperatively, the patient had an increase in back pain and new left radicular pain. One week postoperative xray demonstrated malpostion of the interbody graft into the left L4/5 foramen. The graft now appears to be subsided into both L4 and L5. The patient was admitted last week with severe back pain and radicular pain. Based on her symptoms and radiographic findings, I offered her bilateral foramenotomies and revision of the posterior fusion. The patient understands the risks and benefits and elected to proceed. Procedure Description Ms. Abernathy was brought back to the operating room where general endotracheal anesthesia was induced without difficulty. She was placed prone on the operating room Morteza table and neuromonitoring including EMGs was set up. All pressure points were carefully padded. Her previous incision was prepped and draped in the usual sterile fashion. The #10 blade was used to incise the skin and bovie electrocautery was used to carry dissection down to the spinous process and the intact lamina on the right. The lamina at L5 was exposed on the left. The rods and screws were exposed without difficulty. The screw caps were removed and the rods were removed on the right. A laminoforamentomy was performed on previously un-decompressed right side. This was performed with the high speed drill until the thecal dura was exposed and this was used to follow the right L4 nerve root out through the foramen. Attention was then turned to the left. The screw caps and harry were removed. Shortly after this there was an improvement in EMG responses on the left at L4 and L5, which were diminished at the start of the case. I suspect that the previous surgeon had compressed a previously un-decompressed nerve. I then used the high speed drill to expose the edge of the thecal sac and a thick scar mass. To perform the foramenotomy I had to remove the left L5 pedicle screw. I then used the high speed drill to complete the left foramenotomy, which required drilling primarily on the inferior aspect of the nerve. The bone was further r emoved with curettes. A new 6.0mm x 40mm Dropifi Expedium Cortical Fix screw was placed at L5. Thick scar prevented any revision of the TLIF graft from a posterior approach. EMGs on the left had now become normal. Stimulation of the screws on the left was normal. I then placed 35mm titanium pre-cut rods bilaterally with mild distraction on the left to further open the foramen. An AP and lateral fluoroscopic xray confirmed no changes from the preoperative trajectory and alignment. The wound was washed with copious antibiotic irrigation. I then performed the L4/5 arthrodesis by further decortication and by laying DBX putty laterally across the levels. A medium hemovac drain was placed and the wound was closed in layers with 1 vicryl suture for the muscle and fascia and 2-0 vicryl suture for the subcutaneous tissue and dermis. The skin was closed with a running locking 3-0 nylon stitch. All sponge and needle counts were correct at the end of the case. YOEL PETERS MD Feb 04, 2019 07:37
[2019-02-04] MEDS ORDERED: EPHEDrine 25 MG/5 ML SYG IV PRN (08:30)
[2019-02-04] MEDS ORDERED: IPRATROPIUM (NEB) 0.5 MG/2.5 ML AMP HHN PRN (08:30)
[2019-02-04] MEDS ORDERED: hydrALAzine 20 MG INJ IV PRN (08:30)
[2019-02-04] MEDS ORDERED: OXYCODONE/ACETAMINOPHEN (5/325) TAB PO PRN ×2 (08:30)
[2019-02-04] MEDS ORDERED: ONDANSETRON 4 MG INJ IV PRN (08:30)
[2019-02-04] MEDS ORDERED: MIDAZOLAM 1 MG/ML 2 ML INJ IV PRN (08:30)
[2019-02-04] MEDS ORDERED: DIPHENHYDRAMINE 50 MG INJ IV PRN (08:30)
[2019-02-04] MEDS ORDERED: TRIMETHOBENZAMIDE 100 MG/ML VIAL IM PRN (08:30)
[2019-02-04] MEDS ORDERED: HYDROmorphONE 1 MG/5 ML IV SYRINGE IV PRN ×2 (08:30)
[2019-02-04] MEDS ORDERED: LABETALOL HCL 20MG INJ IV PRN (08:30)
[2019-02-04] MEDS ORDERED: MEPERIDINE 25 MG INJ IV PRN (08:30)
[2019-02-04] MEDS ORDERED: ALBUTEROL 0.083% (NEB) 2.5 MG/3 ML AMP HHN PRN (08:30)
[2019-02-04] MEDS ORDERED: FENTAnyl 50 MCG/ML VIAL IV PRN ×2 (08:30)
[2019-02-04] MEDS: BUSPIRONE 5 MG TAB PO SCH ×2 (09:00→20:37)
[2019-02-04] MEDS: DULOXETINE 30 MG CAP DR PO SCH ×2 (09:00→20:37)
[2019-02-04] MEDS: BACLOFEN 10 MG TAB PO SCH ×3 (09:00→20:37)
[2019-02-04] MEDS ORDERED: SURGIFOAM POWDER 1 GM KIT MM ONE (10:00)
[2019-02-04] MEDS ORDERED: THROMBIN 5000 UNIT VIAL TOP ONE (10:00)
[2019-02-04] MEDS ORDERED: SURGIFOAM POWDER 1 GM KIT ONE (10:04)
[2019-02-04] MEDS ORDERED: SUGAMMADEX SODIUM 200 MG/2 ML VIAL IV ONE (10:46)
[2019-02-04] MEDS: FENTAnyl 50 MCG/ML VIAL IV PRN ×2 (11:38→11:53)
[2019-02-04] MEDS: HYDROmorphONE 1 MG/5 ML IV SYRINGE IV PRN ×2 (11:38→11:53)
[2019-02-04] MEDS: HYDROCODONE/APAP (5/325) TAB PO PRN ×2 (14:15→20:38)
[2019-02-04] MEDS: CEFAZOLIN 1 GM/50 ML (PMX) 50 ML IVPB SCH ×2 (14:17→21:05)
--- NOTE | 2019-02-04 16:18 | PN ---
Date/Time of Note Date/Time of Note DATE: 02/04/19 TIME: 16:14 Assessment/Plan VTE Prophylaxis Risk score (from Nsg)>0 risk: 8 SCD applied (from Nsg): No SCD contraindicated: low risk/ambulating Pharmacological prophylaxis: NA/contraindicated Pharm contraindication: surgical contra Lines/Catheters IV Catheter Type (from Nrsg): Peripheral IV Urinary Cath still in place: No Assessment/Plan Assessment/Plan 68-year-old woman with a past medical history of chronic back pain who had a lumbar spine surgery in September 2018 and was getting rehabilitation at a local [facility] facility who was brought into the emergency room because of uncontrolled pain. # Low back pain in a patient with recent surgery to the lumbar spine- lumbar spine surgery apparently by a Dr. Francisco at [facility] on 10/23/2018- Lumbar spine CT showing postsurgical changes L4-5 with grade 2 anterolisthesis, severe disc space narrowing, endplate erosive changes, and probable fragmented disc spacer device. MRI L-spine results reviewed as well. - Continue opioid analgesics and muscle relaxants. - Continue PT while patient in house - NM bone scan shows benign reactive bony changes at surgical site. - s/p bilateral L4/5 foramenotomy on 02/04. # Major depressive disorder severe recurrent without psychosis - appreciate psychiatry consult, this is her new diagnosis after patient had been complaining of anxiousness and being emotional labile -Continue BuSpar, [place], Cymbalta, follow-up further psychiatry recommendations. Result Diagram: 02/03/19 1427 02/03/19 1427 Subjective 24 Hr Interval Summary Free Text/Dictation Went for spine surgery this morning. Postoperatively doing well. Pain controlled. Exam/Review of Systems Exam Vitals Vital Signs Date Temp Pulse Resp B/P (MAP) Pulse Ox O2 O2 Flow FiO2 Time Delivery Rate 02/04/19 98.0 100 18 106/63 94 14:00 (77) 02/04/19 Nasal 2.0 12:32 Cannula Intake and Output 02/03/19 02/03/19 02/04/19 1515:00 23:00 07:00 IntakeIntake Total 400 ml 200 ml BalanceBalance 400 ml 200 ml Exam General: Adequately built woman lying in bed, working on her laptop. HEENT: Normocephalic, atraumatic. Eyes: Anicteric sclerae, conjunctivae clear. ENT: Nasal septum midline, oral mucosa moist. Neck supple, no JVD noticed. Respiratory: Bilaterally clear breath sounds. No use of accessory muscles of respiration. No adventitious breath sounds. Cardiovascular: S1, S2 heard. No murmurs or gallops. Abdomen: Soft, nontender, and nondistended. Bowel sounds positive in all 4 quadrants. Back: Postoperative drains in place with sanguinous discharge. Extremities: No cyanosis, no clubbing, no edema. Peripheral pulses palpable. Medications Medication Current Medications IV Flush (NS 3 ml) 3 ml PER PROTOCOL IV Last administered on 01/29/19 08:25; Admin Dose 3 ML; Start 01/24/19 at 06:00 Ondansetron HCl (Zofran Inj) 4 mg Q6H PRN IV NAUSEA/VOMITING Last administered on 01/28/19 01:49; Admin Dose 4 MG; Start 01/24/19 at 06:00 Acetaminophen (Tylenol Tab) 650 mg Q6H PRN PO .PAIN 1-3 OR TEMP; Start 01/24/19 at 06:00 Hydromorphone HCl (Dilaudid) 0.5 mg Q4H PRN IV .SEVERE PAIN 7-10 Last administered on 02/04/19 01:21; Admin Dose 0.5 MG; Start 01/24/19 at 06:00 Docusate Sodium (Colace) 100 mg Q12H PRN PO .CONSTIPATION Last administered on 02/03/19 14:26; Admin Dose 100 MG; Start 01/24/19 at 06:00 Bisacodyl (Dulcolax) 5 mg DAILY PRN PO .CONSTIPATION; Start 01/24/19 at 06:00 Baclofen (Lioresal) 10 mg TID PO Last administered on 02/04/19 13:18; Admin Dose 10 MG; Start 01/25/19 at 21:00 Acetaminophen/ Hydrocodone Bitart ([place] (5/325)) 1 tab Q6H PRN PO PAIN LEVEL 4-7 Last administered on 02/04/19 14:15; Admin Dose 1 TAB; Start 01/26/19 at 18:00 Clonazepam (Klonopin) 0.5 mg Q6 PRN PO anxiety Last administered on 02/03/19 22:00; Admin Dose 0.5 MG; Start 01/27/19 at 16:30 Duloxetine HCl (Cymbalta) 30 mg BID PO Last administered on 02/03/19at 20:13; Admin Dose 30 MG; Start 01/27/19 at 21:00 Buspirone HCl (Buspar) 5 mg BID PO Last administered on 02/03/19at 20:13; Admin Dose 5 MG; Start 02/03/19 at 09:00 Cefazolin Sodium 50 ml @ 100 mls/hr Q8 IVPB Last administered on 02/04/19at 14:17; Admin Dose 100 MLS/HR; Start 02/04/19 at 14:00 BRIDGET COONEY MD Feb 04, 2019 16:18
[2019-02-04] MEDS: LORATADINE 10 MG TAB PO SCH (21:05)
[2019-02-05 02:06] VITALS: BP 119/74; PULSE 77; RESP 19
[2019-02-05] MEDS: HYDROmorphONE 0.5 MG/0.5 ML SYG IV PRN ×3 (02:54→13:52)
[2019-02-05] MEDS: CEFAZOLIN 1 GM/50 ML (PMX) 50 ML IVPB SCH ×3 (05:07→22:00)
[2019-02-05] MEDS: HYDROCODONE/APAP (5/325) TAB PO PRN ×3 (05:14→18:22)
[2019-02-05 07:24] VITALS: BP 109/64; PULSE 69; RESP 18
[2019-02-05] MEDS: BUSPIRONE 5 MG TAB PO SCH ×2 (08:45→20:17)
[2019-02-05] MEDS: BACLOFEN 10 MG TAB PO SCH ×3 (08:45→20:17)
[2019-02-05] MEDS: DULOXETINE 30 MG CAP DR PO SCH ×2 (08:45→20:17)
[2019-02-05] MEDS: LORATADINE 10 MG TAB PO SCH (08:45)
--- NOTE | 2019-02-05 09:24 | CONS ---
Assessment/Plan Assessment/Plan Assessment/Plan (Daily) POD1 Revision L4/5 TLIF - mobilize/PT/OT - incentive spirometry - will d/c drain tomorrow - discharge home this weekend if pain controlled Consultation Date/Type/Reason Admit Date/Time Jan 24, 2019 at 16:16 Initial Consult Date 01/30/19 Type of Consult Neurosurgery Date/Time of Note DATE: 02/05/19 TIME: 09:19 24 HR Interval Summary Free Text/Dictation POD1 Revision L4/5 TLIF left radicular pain resolved, back pain improving Exam/Review of Systems Exam Vitals Vital Signs Date Temp Pulse Resp B/P (MAP) Pulse Ox O2 O2 Flow FiO2 Time Delivery Rate 02/05/19 98.4 69 18 109/64 99 Room Air 07:24 (79) 02/04/19 2.0 12:32 Intake and Output 02/04/19 02/04/19 02/05/19 1515:00 23:00 07:00 IntakeIntake Total 2490 ml 50 ml 50 ml OutputOutput Total 80 ml 50 ml 5 ml BalanceBalance 2410 ml 0 ml 45 ml Exam 5/5 strength SILT Results Result Diagram: 02/03/19 1427 02/03/19 1427 Medications Medication Current Medications IV Flush (NS 3 ml) 3 ml PER PROTOCOL IV Last administered on 01/29/19at 08:25; Admin Dose 3 ML; Start 01/24/19 at 06:00 Ondansetron HCl (Zofran Inj) 4 mg Q6H PRN IV NAUSEA/VOMITING Last administered on 01/28/19at 01:49; Admin Dose 4 MG; Start 01/24/19 at 06:00 Acetaminophen (Tylenol Tab) 650 mg Q6H PRN PO .PAIN 1-3 OR TEMP; Start 01/24/19 at 06:00 Hydromorphone HCl (Dilaudid) 0.5 mg Q4H PRN IV .SEVERE PAIN 7-10 Last administered on 02/05/19at 08:43; Admin Dose 0.5 MG; Start 01/24/19 at 06:00 Docusate Sodium (Colace) 100 mg Q12H PRN PO .CONSTIPATION Last administered on 02/03/19at 14:26; Admin Dose 100 MG; Start 01/24/19 at 06:00 Bisacodyl (Dulcolax) 5 mg DAILY PRN PO .CONSTIPATION; Start 01/24/19 at 06:00 Baclofen (Lioresal) 10 mg TID PO Last administered on 02/05/19 08:45; Admin Dose 10 MG; Start 01/25/19 at 21:00 Acetaminophen/ Hydrocodone Bitart ([place] (5/325)) 1 tab Q6H PRN PO PAIN LEVEL 4-7 Last administered on 02/05/19 05:14; Admin Dose 1 TAB; Start 01/26/19 at 18:00 Clonazepam (Klonopin) 0.5 mg Q6 PRN PO anxiety Last administered on 02/03/19 22:00; Admin Dose 0.5 MG; Start 01/27/19 at 16:30 Duloxetine HCl (Cymbalta) 30 mg BID PO Last administered on 02/05/19 08:45; Admin Dose 30 MG; Start 01/27/19 at 21:00 Buspirone HCl (Buspar) 5 mg BID PO Last administered on 02/05/19 08:45; Admin Dose 5 MG; Start 02/03/19 at 09:00 Cefazolin Sodium 50 ml @ 100 mls/hr Q8 IVPB Last administered on 02/05/19 05:07; Admin Dose 100 MLS/HR; Start 02/04/19 at 14:00 Loratadine (Claritin) 10 mg DAILY PO Last administered on 02/05/19 08:45; Admin Dose 10 MG; Start 02/04/19 at 20:00 FARRUKH PETERS MD Feb 05, 2019 09:24
[2019-02-05] MEDS: DOCUSATE SODIUM 100 MG CAP PO PRN (12:30)
[2019-02-05 13:58] VITALS: BP 120/67; PULSE 75; RESP 18
--- NOTE | 2019-02-05 14:46 | PN ---
Date/Time of Note Date/Time of Note DATE: 02/05/19 TIME: 14:44 Assessment/Plan VTE Prophylaxis Risk score (from Nsg)>0 risk: 8 SCD applied (from Nsg): Yes Pharmacological prophylaxis: NA/contraindicated Pharm contraindication: low risk/ambulating Lines/Catheters IV Catheter Type (from Nrsg): Saline Lock Urinary Cath still in place: No Assessment/Plan Assessment/Plan 68-year-old woman with a past medical history of chronic back pain who had a lumbar spine surgery in September 2018 and was getting rehabilitation at a local [facility] facility who was brought into the emergency room because of uncontrolled pain. # Low back pain in a patient with recent surgery to the lumbar spine- lumbar spine surgery apparently by a Dr. Francisco at [facility] on 10/23/2018- Lumbar spine CT showing postsurgical changes L4-5 with grade 2 anterolisthesis, severe disc space narrowing, endplate erosive changes, and probable fragmented disc spacer device. MRI L-spine results reviewed as well. - Continue PT while patient in house - NM bone scan shows benign reactive bony changes at surgical site. - s/p bilateral L4/5 foramenotomy on 02/04. - Slowly weaning off postoperative IV opiates. - Anticipate discharge on NSAIDs and [place] # Major depressive disorder severe recurrent without psychosis - appreciate psychiatry consult, this is her new diagnosis after patient had been complaining of anxiousness and being emotional labile -Continue Jose, Robert, Cysuyapaalta, follow-up further psychiatry recommendations. Dispo: Anticipate discharge home this Saturday or Saturday with HHPT Result Diagram: 02/05/19 1118 02/05/19 1118 Subjective 24 Hr Interval Summary Free Text/Dictation No acute overnight events. Pain very well controlled. Still on IV dilaudid. Ambulating well with PT. Exam/Review of Systems Exam Vitals Vital Signs Date Temp Pulse Resp B/P (MAP) Pulse Ox O2 O2 Flow FiO2 Time Delivery Rate 02/05/19 97.9 75 18 120/67 98 Room Air 13:58 (84) 02/04/19 2.0 12:32 Intake and Output 02/04/19 02/04/19 02/05/19 1515:00 23:00 07:00 IntakeIntake Total 2490 ml 50 ml 50 ml OutputOutput Total 80 ml 50 ml 5 ml BalanceBalance 2410 ml 0 ml 45 ml Exam General: Adequately built woman lying in bed, working on her laptop. HEENT: Normocephalic, atraumatic. Eyes: Anicteric sclerae, conjunctivae clear. ENT: Nasal septum midline, oral mucosa moist. Neck supple, no JVD noticed. Respiratory: Bilaterally clear breath sounds. No use of accessory muscles of respiration. No adventitious breath sounds. Cardiovascular: S1, S2 heard. No murmurs or gallops. Abdomen: Soft, nontender, and nondistended. Bowel sounds positive in all 4 quadrants. Back: Postoperative drains in place, drainage clearing up. Midline dressing clean without blood. Extremities: No cyanosis, no clubbing, no edema. Peripheral pulses palpable. Results Results 24hrs Laboratory Tests Test 02/05/19 11:18 White Blood Count 8.3 # Red Blood Count 3.57 L Hemoglobin 9.8 L Hematocrit 31.4 L Mean Corpuscular Volume 88.0 Mean Corpuscular Hemoglobin 27.5 L Mean Corpuscular Hemoglobin Concent 31.2 L Red Cell Distribution Width 16.5 H Platelet Count 342 Mean Platelet Volume 10.1 Immature Granulocytes % 0.400 Neutrophils % 66.1 Lymphocytes % 25.8 Monocytes % 7.3 Eosinophils % 0.2 Basophils % 0.2 Nucleated Red Blood Cells % 0.0 Immature Granulocytes # 0.030 Neutrophils # 5.5 Lymphocytes # 2.1 Monocytes # 0.6 Eosinophils # 0.0 Basophils # 0.0 Nucleated Red Blood Cells # 0.0 Sodium Level 140 Potassium Level 4.4 Chloride Level 104 Carbon Dioxide Level 30 Anion Gap 6 Blood Urea Nitrogen 10 Creatinine 0.74 Est Glomerular Filtrat Rate mL/min > 60 Glucose Level 94 Calcium Level 10.0 Phosphorus Level 3.2 Magnesium Level 1.6 L Medications Medication Current Medications IV Flush (NS 3 ml) 3 ml PER PROTOCOL IV Last administered on 01/29/19at 08:25; Admin Dose 3 ML; Start 01/24/19 at 06:00 Ondansetron HCl (Zofran Inj) 4 mg Q6H PRN IV NAUSEA/VOMITING Last administered on 01/28/19at 01:49; Admin Dose 4 MG; Start 01/24/19 at 06:00 Acetaminophen (Tylenol Tab) 650 mg Q6H PRN PO .PAIN 1-3 OR TEMP; Start 01/24/19 at 06:00 Hydromorphone HCl (Dilaudid) 0.5 mg Q4H PRN IV .SEVERE PAIN 7-10 Last administered on 02/05/19 13:52; Admin Dose 0.5 MG; Start 01/24/19 at 06:00 Docusate Sodium (Colace) 100 mg Q12H PRN PO .CONSTIPATION Last administered on 02/05/19 12:30; Admin Dose 100 MG; Start 01/24/19 at 06:00 Bisacodyl (Dulcolax) 5 mg DAILY PRN PO .CONSTIPATION Last administered on 02/05/19 13:52; Admin Dose 5 MG; Start 01/24/19 at 06:00 Baclofen (Lioresal) 10 mg TID PO Last administered on 02/05/19 12:30; Admin Dose 10 MG; Start 01/25/19 at 21:00 Acetaminophen/ Hydrocodone Bitart ([place] (5/325)) 1 tab Q6H PRN PO PAIN LEVEL 4-7 Last administered on 02/05/19 11:42; Admin Dose 1 TAB; Start 01/26/19 at 18:00 Clonazepam (Klonopin) 0.5 mg Q6 PRN PO anxiety Last administered on 02/03/19 22:00; Admin Dose 0.5 MG; Start 01/27/19 at 16:30 Duloxetine HCl (Cymbalta) 30 mg BID PO Last administered on 02/05/19 08:45; Admin Dose 30 MG; Start 01/27/19 at 21:00 Buspirone HCl (Buspar) 5 mg BID PO Last administered on 02/05/19 08:45; Admin Dose 5 MG; Start 02/03/19 at 09:00 Cefazolin Sodium 50 ml @ 100 mls/hr Q8 IVPB Last administered on 02/05/19 13:52; Admin Dose 100 MLS/HR; Start 02/04/19 at 14:00 Loratadine (Claritin) 10 mg DAILY PO Last administered on 02/05/19 08:45; Admin Dose 10 MG; Start 02/04/19 at 20:00 Magnesium Sulfate 50 ml @ 25 mls/hr ONCE ONCE IVPB ; Start 02/05/19 at 15:00; Stop 7/11/19 at 16:59 BRIDGET COONEY MD Feb 05, 2019 14:46
[2019-02-05] MEDS ORDERED: MAGNESIUM SULFATE 2 GM/50 ML 50 ML IVPB ONE (15:00)
[2019-02-05 20:00] VITALS: BP 99/54; PULSE 75
[2019-02-06] MEDS: HYDROCODONE/APAP (5/325) TAB PO PRN (00:59)
[2019-02-06] MEDS ORDERED: LIDOCAINE 5% PATCH TD ONE (01:00)
[2019-02-06 02:00] VITALS: BP 110/69; PULSE 71
[2019-02-06] MEDS: clonAZEPAM 0.5 MG TAB PO PRN (03:15)
[2019-02-06] MEDS: HYDROmorphONE 0.5 MG/0.5 ML SYG IV PRN ×2 (04:43→10:11)
[2019-02-06] MEDS: CEFAZOLIN 1 GM/50 ML (PMX) 50 ML IVPB SCH ×3 (06:24→23:42)
[2019-02-06 07:58] VITALS: BP 95/58; PULSE 77; RESP 18
[2019-02-06] MEDS: DULOXETINE 30 MG CAP DR PO SCH ×2 (08:23→21:57)
[2019-02-06] MEDS: LORATADINE 10 MG TAB PO SCH (08:23)
[2019-02-06] MEDS: BUSPIRONE 5 MG TAB PO SCH ×2 (08:23→21:57)
[2019-02-06] MEDS: BACLOFEN 10 MG TAB PO SCH ×3 (08:23→21:57)
--- NOTE | 2019-02-06 11:16 | PN ---
Date/Time of Note Date/Time of Note DATE: 02/06/19 TIME: 11:15 Assessment/Plan VTE Prophylaxis Risk score (from Nsg)>0 risk: 8 SCD applied (from Nsg): No SCD contraindicated: low risk/ambulating Pharmacological prophylaxis: NA/contraindicated Pharm contraindication: low risk/ambulating Lines/Catheters IV Catheter Type (from Nrsg): Saline Lock Urinary Cath still in place: No Assessment/Plan Assessment/Plan 68-year-old woman with a past medical history of chronic back pain who had a lumbar spine surgery in September 2018 and [facility] who was brought into the emergency room because of unc ontrolled pain. # Low back pain in a patient with recent surgery to the lumbar spine- lumbar spine surgery apparently by a Dr. Francisco at [facility] on 10/23/2018- Lumbar spine CT showing postsurgical changes L4-5 with grade 2 anterolisthesis, severe disc space narrowing, endplate erosive changes, and probable fragmented disc spacer device. MRI L-spine results reviewed as well. - Continue PT while patient in house - NM bone scan shows benign reactive bony changes at surgical site. - s/p bilateral L4/5 foramenotomy on 02/04. - Anticipate discharge on NSAIDs and [place] - Home health PT arranged. # Major depressive disorder severe recurrent without psychosis - appreciate psychiatry consult, this is her new diagnosis after patient had been complaining of anxiousness and being emotional labile -Continue BuSpar, Klonopin, Cymbalta, follow-up further psychiatry recommendations. Dispo: Anticipate discharge home this Saturday or Saturday with HHPT Result Diagram: 02/05/19 1118 02/05/19 1118 Subjective 24 Hr Interval Summary Free Text/Dictation Patient doing well today. Had a little anxiety attack this morning and was briefly placed on oxygen because she was hyperventilating. No desat though. She also requested to stop IV analgesics and try to get by on oral meds only. Exam/Review of Systems Exam Vitals Vital Signs Date Temp Pulse Resp B/P (MAP) Pulse Ox O2 O2 Flow FiO2 Time Delivery Rate 02/06/19 98.0 77 18 95/58 (70) 98 07:58 02/06/19 Room Air 02:00 02/04/19 2.0 12:32 Intake and Output 02/05/19 02/05/1919 1515:00 23:00 07:00 IntakeIntake Total 690 ml 440 ml 50 ml OutputOutput Total 50 ml BalanceBalance 690 ml 440 ml 0 ml Exam General: Adequately built woman lying in bed, working on her laptop. HEENT: Normocephalic, atraumatic. Eyes: Anicteric sclerae, conjunctivae clear. ENT: Nasal septum midline, oral mucosa moist. Neck supple, no JVD noticed. Respiratory: Bilaterally clear breath sounds. No use of accessory muscles of respiration. No adventitious breath sounds. Cardiovascular: S1, S2 heard. No murmurs or gallops. Abdomen: Soft, nontender, and nondistended. Bowel sounds positive in all 4 quadrants. Back: Postoperative drains in place, drainage clearing up. Midline dressing clean without blood. Extremities: No cyanosis, no clubbing, no edema. Peripheral pulses palpable. Results Results 24hrs Laboratory Tests Test 02/05/19 11:18 White Blood Count 8.3 # Red Blood Count 3.57 L Hemoglobin 9.8 L Hematocrit 31.4 L Mean Corpuscular Volume 88.0 Mean Corpuscular Hemoglobin 27.5 L Mean Corpuscular Hemoglobin Concent 31.2 L Red Cell Distribution Width 16.5 H Platelet Count 342 Mean Platelet Volume 10.1 Immature Granulocytes % 0.400 Neutrophils % 66.1 Lymphocytes % 25.8 Monocytes % 7.3 Eosinophils % 0.2 Basophils % 0.2 Nucleated Red Blood Cells % 0.0 Immature Granulocytes # 0.030 Neutrophils # 5.5 Lymphocytes # 2.1 Monocytes # 0.6 Eosinophils # 0.0 Basophils # 0.0 Nucleated Red Blood Cells # 0.0 Sodium Level 140 Potassium Level 4.4 Chloride Level 104 Carbon Dioxide Level 30 Anion Gap 6 Blood Urea Nitrogen 10 Creatinine 0.74 Est Glomerular Filtrat Rate mL/min > 60 Glucose Level 94 Calcium Level 10.0 Phosphorus Level 3.2 Magnesium Level 1.6 L Medications Medication Current Medications IV Flush (NS 3 ml) 3 ml PER PROTOCOL IV Last administered on 01/29/19at 08:25; Admin Dose 3 ML; Start 01/24/19 at 06:00 Ondansetron HCl (Zofran Inj) 4 mg Q6H PRN IV NAUSEA/VOMITING Last administered on 01/28/19at 01:49; Admin Dose 4 MG; Start 01/24/19 at 06:00 Acetaminophen (Tylenol Tab) 650 mg Q6H PRN PO .PAIN 1-3 OR TEMP; Start 01/24/19 at 06:00 Hydromorphone HCl (Dilaudid) 0.5 mg Q4H PRN IV .SEVERE PAIN 7-10 Last administered on 02/06/19 10:11; Admin Dose 0.5 MG; Start 01/24/19 at 06:00 Docusate Sodium (Colace) 100 mg Q12H PRN PO .CONSTIPATION Last administered on 02/05/19 12:30; Admin Dose 100 MG; Start 01/24/19 at 06:00 Bisacodyl (Dulcolax) 5 mg DAILY PRN PO .CONSTIPATION Last administered on 02/05/19 13:52; Admin Dose 5 MG; Start 01/24/19 at 06:00 Baclofen (Lioresal) 10 mg TID PO Last administered on 02/06/19 08:23; Admin Dose 10 MG; Start 01/25/19 at 21:00 Acetaminophen/ Hydrocodone Bitart ([place] (5/325)) 1 tab Q6H PRN PO PAIN LEVEL 4-7 Last administered on 02/05/19 18:22; Admin Dose 1 TAB; Start 01/26/19 at 18:00 Clonazepam (Klonopin) 0.5 mg Q6 PRN PO anxiety Last administered on 02/06/19 03:15; Admin Dose 0.5 MG; Start 01/27/19 at 16:30 Duloxetine HCl (Cymbalta) 30 mg BID PO Last administered on 02/06/19 08:23; Admin Dose 30 MG; Start 01/27/19 at 21:00 Buspirone HCl (Buspar) 5 mg BID PO Last administered on 02/06/19 08:23; Admin Dose 5 MG; Start 02/03/19 at 09:00 Cefazolin Sodium 50 ml @ 100 mls/hr Q8 IVPB Last administered on 02/06/19 06:24; Admin Dose 100 MLS/HR; Start 02/04/19 at 14:00 Loratadine (Claritin) 10 mg DAILY PO Last administered on 02/06/19 08:23; Admin Dose 10 MG; Start 7/10/19 at 20:00 Acetaminophen/ Hydrocodone Bitart ([place] (5/325)) 2 tab Q4H PRN PO MODERATE PAIN LEVEL 4-6 Last administered on 02/06/19at 00:59; Admin Dose 2 TAB; Start 02/06/19 at 01:00 BRIDGET COONEY MD Feb 06, 2019 11:16
[2019-02-06 14:42] VITALS: BP 77/46; PULSE 65; RESP 18
[2019-02-06 15:20] VITALS: BP 85/50
[2019-02-06] MEDS ORDERED: LACTATED RINGER'S 500 ML IV ONE (15:30)
--- NOTE | 2019-02-06 16:12 | CONS ---
Assessment/Plan Assessment/Plan Assessment/Plan (Daily) POD2 Revision L4/5 TLIF - Standing x-rays - mobilize - hemovac out - miralax Consultation Date/Type/Reason Admit Date/Time Jan 24, 2019 at 16:16 Initial Consult Date 01/30/19 Type of Consult Neurosurgery Date/Time of Note DATE: 02/06/19 TIME: 16:11 24 HR Interval Summary Free Text/Dictation Doing well. Has not ambulated. Back pain still, but radiculopathy resolved. Exam/Review of Systems Exam Vitals Vital Signs Date Temp Pulse Resp B/P (MAP) Pulse Ox O2 O2 Flow FiO2 Time Delivery Rate 02/06/19 85/50 (62) 15:20 02/06/19 98.1 65 18 91 14:42 02/06/19 Room Air 02:00 02/04/19 2.0 12:32 Intake and Output 02/05/19 02/05/19 02/06/19 1515:00 23:00 07:00 IntakeIntake Total 690 ml 440 ml 50 ml OutputOutput Total 50 ml BalanceBalance 690 ml 440 ml 0 ml Exam 11/30 HV - 50cc/24hrs Results Result Diagram: 02/05/19 1118 02/05/19 1118 Medications Medication Current Medications IV Flush (NS 3 ml) 3 ml PER PROTOCOL IV Last administered on 01/29/19at 08:25; Admin Dose 3 ML; Start 01/24/19 at 06:00 Ondansetron HCl (Zofran Inj) 4 mg Q6H PRN IV NAUSEA/VOMITING Last administered on 01/28/19at 01:49; Admin Dose 4 MG; Start 01/24/19 at 06:00 Acetaminophen (Tylenol Tab) 650 mg Q6H PRN PO .PAIN 1-3 OR TEMP; Start 01/24/19 at 06:00 Docusate Sodium (Colace) 100 mg Q12H PRN PO .CONSTIPATION Last administered on 02/05/19at 12:30; Admin Dose 100 MG; Start 01/24/19 at 06:00 Bisacodyl (Dulcolax) 5 mg DAILY PRN PO .CONSTIPATION Last administered on 02/05/19at 13:52; Admin Dose 5 MG; Start 01/24/19 at 06:00 Baclofen (Lioresal) 10 mg TID PO Last administered on 02/06/19 12:50; Admin Dose 10 MG; Start 01/25/19 at 21:00 Acetaminophen/ Hydrocodone Bitart ([place] (5/325)) 1 tab Q6H PRN PO PAIN LEVEL 4-7 Last administered on 02/05/19 18:22; Admin Dose 1 TAB; Start 01/26/19 at 18:00 Clonazepam (Klonopin) 0.5 mg Q6 PRN PO anxiety Last administered on 02/06/19 03:15; Admin Dose 0.5 MG; Start 01/27/19 at 16:30 Duloxetine HCl (Cymbalta) 30 mg BID PO Last administered on 02/06/19 08:23; Admin Dose 30 MG; Start 01/27/19 at 21:00 Buspirone HCl (Buspar) 5 mg BID PO Last administered on 02/06/19 08:23; Admin Dose 5 MG; Start 02/03/19 at 09:00 Cefazolin Sodium 50 ml @ 100 mls/hr Q8 IVPB Last administered on 02/06/19 14:14; Admin Dose 100 MLS/HR; Start 02/04/19 at 14:00 Loratadine (Claritin) 10 mg DAILY PO Last administered on 02/06/19 08:23; Admin Dose 10 MG; Start 02/04/19 at 20:00 Acetaminophen/ Hydrocodone Bitart ([place] (5/325)) 2 tab Q4H PRN PO MODERATE PAIN LEVEL 4-6 Last administered on 02/06/19 00:59; Admin Dose 2 TAB; Start 02/06/19 at 01:00 Hydromorphone HCl (Dilaudid) 2 mg Q3H PRN PO BREAKTHROUGH PAIN; Start 02/06/19 at 11:30 Lactated Ringer's 500 ml @ 500 mls/hr Q1H ONCE IV ; Start 02/06/19 at 15:30; Stop 02/06/19 at 16:29 FARRUKH PETERS MD Feb 06, 2019 16:12
[2019-02-06 21:27] VITALS: BP 90/54; PULSE 91; RESP 16
[2019-02-06] MEDS: POLYETHYLENE GLYCOL 17 GM PACKET GTB SCH (21:57)
[2019-02-07 02:07] VITALS: BP 109/69; PULSE 87; RESP 18
[2019-02-07] MEDS: HYDROmorphONE 2 MG TAB PO PRN ×3 (03:29→12:28)
[2019-02-07] MEDS: HYDROCODONE/APAP (5/325) TAB PO PRN ×3 (04:19→12:28)
[2019-02-07] MEDS: CEFAZOLIN 1 GM/50 ML (PMX) 50 ML IVPB SCH ×2 (05:41→14:00)
[2019-02-07 07:41] VITALS: BP 112/73; PULSE 74; RESP 20
[2019-02-07] MEDS: BACLOFEN 10 MG TAB PO SCH ×2 (09:25→12:28)
[2019-02-07] MEDS: LORATADINE 10 MG TAB PO SCH (09:25)
[2019-02-07] MEDS: DULOXETINE 30 MG CAP DR PO SCH (09:25)
[2019-02-07] MEDS: POLYETHYLENE GLYCOL 17 GM PACKET GTB SCH (09:25)
[2019-02-07] MEDS: BUSPIRONE 5 MG TAB PO SCH (09:26)
[2019-02-07] MEDS ORDERED: CLON0.5T14 PO (13:42)
[2019-02-07] MEDS ORDERED: HYDR-2457 PO (13:42)
[2019-02-07] MEDS ORDERED: BACL10TA PO (13:42)
--- NOTE | 2019-02-07 13:47 | PDOCDIS ---
Discharge Instructions DIAGNOSIS Discharge Diagnosis Chronic postoperative lower back pain status post bilateral L4/5 foramenotomies and revision L4-5 arthrodesis CONDITION [id number] Patient Condition: [id number] Good HOME CARE INSTRUCTIONS: [id number] Diet Instructions: [id number] Regular ACTIVITY: [id number] Activity Restrictions: [id number] No Restrictions FOLLOW UP/APPOINTMENTS Follow-up Plan 1. Keep your surgical wounds clean and dry. 2. For pain control, avoid NSAIDs like ibuprofen, advil, naproxen. They prevent your bones from fusing together properly after the surgery. 3. Take baclofen as prescribed to minimize muscle spasm pain. 4. Take norco as needed for severe pain. Do not drink alcohol while on Vel[place] or clonazepam. 5. Take clonazepam as needed for severe anxiety attacks or for severe insomnia not responsive to melatonin. 6. See Dr. Long in clinic in 2 weeks. BRIDGET COONEY MD Feb 07, 2019 13:47
[2019-02-07 14:00] VITALS: BP 92/58; PULSE 78; RESP 16
--- NOTE | 2019-02-07 15:49 | DS ---
Date/Time of Note Date/Time of Note DATE: 02/07/19 TIME: 15:42 Discharge Summary Admission/Discharge Info Admit Date/Time Jan 24, 2019 at 16:16 Discharge Date/Time Feb 07, 2019 Discharge Diagnosis Chronic postoperative lower back pain status post bilateral L4/5 foramenotomies and revision L4-5 arthrodesis Patient Condition: Good Consults Dr. Long, neurosurgery Hx of Present Illness This is a 68-year-old woman who was brought in from [facility] because of lower back pain. The patient verbalized that she was transferred to [facility] after her hospitalization at [facility] on January 15, 2019. She has been unhappy with the care at the facility and therefore, she called the paramedics. The patient verbalized that she had a surgery for ankylosing spondylitis at [facility] in September [address] David Francisco and she was discharged home 3 days after the surgery. Afterwards she was taken to [facility] from her home for reasons that she could not explain. The patient emphasized that she has no problems with drug abuse or alcoholism. The patient denied any psychiatric problems. Before the lumbar spine surgery, the patient was being followed by at [facility] for her chronic pain. The patient was unable to explain the reason for her recent hospitalization at [facility]. The patient verbalized that she has been transferred to [facility] without her knowledge. According tot the patient's RN who had a chance to talk to the patient's daughter (Marianna Abernathy), the patient is dependent on opioids and she had refused home PT after the surgery. As per the patient's daughter the patient becomes agitated when not given enough opioids. During the initial evaluation the patient was complaining of back pain with radiation to bilateral upper extremities and radiation to the chest. The patient also verbalized difficulty in ambulation. She denied any urinary or fecal incontinence. She denied any saddle anesthesia. She denied any fevers or chills. Denied any dyspnea. Denied any nausea, vomiting, abdominal pain, or diarrhea. In the emergency room, the patient underwent a chest x-ray that was showing mild bibasilar subsegmental atelectasis. The patient underwent a lumbar spine CT that was showing postsurgical changes L4-L5 with grade 2 anterolisthesis, severe disc space narrowing, endplate erosive changes, and a probable fragmented disc spacer device. The patient was treated with IV morphi ne, IV ketamine, anxiolytics, and antiemetics in the emergency room. Hospital Course On admission the patient had episodes of agitation and anxiety. She was seen by our psychiatry [facility] who started her on cymbalta, buspar, and clonazepam. The patient was also started on long-acting opioids for chronic lower back pain. Conservative treatment with pain control and physical therapy offered incomplete relief. Dr. Long from neurosurgery was consulted. He took her to the OR on 02/04/19, did a bilateral L4/5 foramenotomy, revision L4-5 posterior instrumentation, and revision L4-5 arthrodesis. Postoperatively the patient reported good pain control and relief of nerve compression symptoms. She will be discharged home with home health PT, [place], baclofen and klonzepam. Home Meds Active Scripts Baclofen* (Baclofen*) 10 Mg Tablet, 10 MG PO TID, #60 TAB Prov:BRIDGET COONEY MD 02/07/19 Clonazepam* (Clonazepam*) 0.5 Mg Tablet, 0.5 MG PO Q6 PRN for anxiety, #30 TAB Prov:BRIDGET COONEY MD 02/07/19 Hydrocodone Bit-Acetaminophen (Hydrocodone Bit-Acetaminophen) 10-300 Mg Tablet, 1 TAB PO Q6H PRN for PAIN, #30 TAB Prov:BRIDGET COONEY MD 02/07/19 Discontinued Reported Medications Ibuprofen* (Advil*) 200 Mg Capsule, 200 MG PO Q6H PRN for PAIN, CAP 01/24/19 Follow-up Plan 1. Keep your surgical wounds clean and dry. 2. For pain control, avoid NSAIDs like ibuprofen, advil, naproxen. They prevent your bones from fusing together properly after the surgery. 3. Take baclofen as prescribed to minimize muscle spasm pain. 4. Take norco as needed for severe pain. Do not drink alcohol while on [place] or clonazepam. 5. Take clonazepam as needed for severe anxiety attacks or for severe insomnia not responsive to melatonin. 6. See Dr. Long in clinic in 2 weeks. Primary Care Provider Not On Staff Doctor Time spent on discharge: > 30 minutes Pending Labs Laboratory Tests Test 02/06/19 19:40 White Blood Count 5.7 10^3/ul (4.8-10.8) Red Blood Count 3.42 10^6/ul (4.20-5.40) Hemoglobin 9.6 g/dl (12.0-16.0) Hematocrit 29.7 % (37.0-47.0) Mean Corpuscular Volume 86.8 fl (82.0-101.0) Mean Corpuscular Hemoglobin 28.1 pg (29.0-33.0) Mean Corpuscular Hemoglobin Concent 32.3 g/dl (32.0-37.0) Red Cell Distribution Width 16.5 % (11.5-14.5) Platelet Count 325 10^3/UL (140-415) Mean Platelet Volume 10.3 fl (7.4-10.4) Neutrophils % 63.5 % (39.0-77.0) Lymphocytes % 25.0 % (15.0-51.0) Monocytes % 9.4 % (0.0-11.0) Eosinophils % 1.0 % (0.0-7.0) Basophils % 0.9 % (0.0-2.0) Nucleated Red Blood Cells % 0.0 /100WBC (0.0-0.0) Neutrophils # 3.6 10^3/ul (1.6-7.5) Lymphocytes # 1.4 10^3/ul (0.8-2.9) Monocytes # 0.5 10^3/ul (0.3-0.9) Eosinophils # 0.1 10^3/ul (0.0-0.5) Basophils # 0.1 10^3/ul (0.0-0.1) Nucleated Red Blood Cells # 0.0 10^3/ul (0.0-0.0) BRIDGET COONEY MD Feb 07, 2019 15:49
== END 2019-02-07 15:40 | disposition home health service (06) | DRG 460 ==
LOC: E/R 02:14 → CANRESERV 05:51 → PP2 05:59 → EDSEX 16:16 → OBSVTOIN 16:16 → 5EC 01-25 01:55
PROVIDERS: ADMIT Family Medicine; ATTEND Internal Medicine
PROC: 0SG00K1 Fusion of Lumbar Vertebral Joint with Nonautologous Tissue Substitute, Posterior Approach, Posterior Column, Open Approach (ICD-10-PCS; 2019-02-04)
PROC: 01NB0ZZ Release Lumbar Nerve, Open Approach (ICD-10-PCS; principal; 2019-02-04 07:30)
DX: T84.028A Dislocation of other internal joint prosthesis, initial encounter (principal); G89.18 Other acute postprocedural pain; M54.9 Dorsalgia, unspecified; F41.9 Anxiety disorder, unspecified; F31.9 Bipolar disorder, unspecified; Z87.891 Personal history of nicotine dependence
CPT/HCPCS: 36415; 71045; 72100; 72110; 72131; 72158; 78306; 80048; 80053; 80061; 80307; 83036; 83540; 83735; 84100; 84443; 84484; 85025; 85610; 85730; 86140; 87081; 88300; 93005; 96374; 96375; 96376; 97110; 97116; 97161; 97164; 97530; A9503; G0378; C1762; J0690; J1100; J1170; J1650; J2060; J2175; J2250; J2270; J2405; J2710; J3010; J3475; J7030; J7120